=== PATIENT | male | born 1990 | race Caucasian/White ===

== ENCOUNTER 2017-08-31 08:32 | Inpatient (IN) | payer SELFPAY ==
[~2017-08-31] VITALS: Ht 177.8 cm; Wt 102.6 kg
[2017-08-31] VITALS (31 sets, daily range): BP systolic 55–132; BP diastolic 34–75; PULSE 100–128; TEMP 36.8–37.4; O2SAT 92–100; Ht 177.8 cm; Wt 102.6 kg
[~2017-08-31 08:32] MED LIST: SODIUM CHLORIDE 0.9% 1000ML 1,000 ML IV ONE
[2017-08-31] MEDS ORDERED: LORAZEPAM 2 MG/ML 1 ML VIAL ONE ×3 (08:35→12:18)
[2017-08-31] MEDS ORDERED: RAPID SEQUENCE INDUCTION BAG ONE (08:35)
[2017-08-31 08:54] LABS: VEN BLOOD GAS BASE EXCESS -11.4 mEq/L; VENOUS BLOOD GAS PCO2 75 mmHg (38.0-50.0); VENOUS BLOOD GAS PO2 28 mmHg
--- NOTE | 2017-08-31 08:54 | EMERGENCY ROOM VISIT NOTE ---
History Report prepared by Sneha: Ambar Cortés Under the Supervision of: Dr. Boris Covington M.D. First contact with patient: 08:26 Stated Complaint: UNRESPONSIVE/OVERDOSE History of Present Illness The patient is a 26 year old male who presents to the Emergency Room with a sudden overdose that occurred prior to arrival. Per EMS, the patient was found slumped over in bed by his roommates with his head between his knees. EMS reports that the patient is a known heroin addict, and additionally notes that he was just released from retirement. EMS reports drug paraphernalia was found in the patient's residence. EMS reports that the patient was given 2 doses of intranasal Narcan by police. EMS reports that the patient did not react to the intranasal Narcan and was given 1 dose of IV Narcan. EMS reports that the patient's extremities became more active after the IV Narcan. The history is limited secondary to the patient's altered mental status. Source of History: EMS History Limited By: AMS Onset: prior to arrival Position: other (global) Quality: other (overdose) Timing: other (sudden) Review of Systems The history is limited secondary to the patient's altered mental status. Past Medical & Surgical Medical Problems: (1) Acute respiratory failure (2) EDGAR (acute kidney injury) (3) Compartment syndrome (4) Heroin abuse (5) Overdose (6) Rhabdomyolysis Family History Family history is unobtainable secondary to the patient's altered mental status. Social History Drug Use: heroin Housing Status: lives with roommate Current/Historical Medications Unable to Obtain Active Prescriptions or Reported Meds Allergies Coded Allergies: No Known Allergies (Unverified , 08/31/17) Physical Exam Vital Signs Date Time Temp Pulse Resp B/P (MAP) Pulse Ox O2 Delivery O2 Flow Rate FiO2 08/31/17 09:10 137 18 153/79 96 Mechanical Ventilator 08/31/17 08:57 138 121/80 08/31/17 08:46 138 51/39 08/31/17 08:44 100 08/31/17 08:39 128 08/31/17 08:35 37.4 126 16 55/34 Ambu-Bag Physical Exam GENERAL: Rigid tone. Obtunded. HENT: Normocephalic, atraumatic. Oropharynx dry, crack MM EYES: Normal conjunctiva. Sclera non-icteric. NECK: Supple. No nuchal rigidity. FROM. No JVD. RESPIRATORY: Rhonchus breath sounds throughout. CARDIAC: ST. Extremities cool and clammy. Pulses thready but equal. Cap refill 2s x 4 Ext. ABDOMEN: Soft, non-distended. No tenderness to palpation. No rebound or guarding. No masses. RECTAL: Deferred. MUSCULOSKELETAL: Chest examination is symmetric with increased wob and accessory muscle use. No joint edema. LOWER EXTREMITIES: Calves are equal size, and rigid with b/l feet in plantar flexion. +DP pulses NEURO: GCS 7 including flex/ex posturing, rigid extremities, pupils are unequal , 4 on right 3 on left. SKIN: Erythematous blanchable patches that are symmetric on anterior thighs and posterior lower legs, consistent with dependent positions as per report found in seated position hunched over with forearms on his thighs/knees. Symmetric patches bilateral lateral chest and lateral abdomen. Skin is cool, clammy. Medical Decision & Procedures ER Provider Diagnostic Interpretation: Radiology results as stated below per my review and radiologist interpretation: CHEST ONE VIEW PORTABLE HISTORY: Evaluate Fever/Sepsis COMPARISON: None. FINDINGS: Endotracheal tube terminates 4.7 cm from the rachell. No pleural effusions. No pneumothorax. The heart is normal in size. Incidental note is made of a right azygos lobe. The lungs are clear. IMPRESSION: The endotracheal tube terminates 4.7 cm from the rachell. Electronically signed by: London Steven M.D. 08/31/2017 9:13 AM Dictated Date/Time: 08/31/2017 9:[address] CT DOSE: 776.86 mGycm HISTORY: obtundation TECHNIQUE: Multiaxial CT images of the head were performed without the use of intravenous contrast. Automated exposure control was utilized for this study. A dose lowering technique was utilized adhering to the principles of ALARA. Comparison: None. Findings: Small fluid level within the right maxillary sinus and mild mucosal thickening within the ethmoid air cells. Bubbly secretions within the right sphenoid sinus. The mastoid air cells are clear. The calvarium and skull base are intact. The ventricles and sulci are within normal limits. There is no mass, hematoma, midline shift, or acute infarct. Impression: No acute intracranial abnormality. Electronically signed by: London Steven M.D. 08/31/2017 9:42 AM Dictated Date/Time: 08/31/2017 9:29 AM Laboratory Results Test 08/31/17 08:37 08/31/17 08:41 08/31/17 08:55 Prothrombin Time 11.8 SECONDS (9.0-12.0) Prothromb Time International Ratio 1.1 (0.9-1.1) Activated Partial Thromboplast Time 27.1 SECONDS (21.0-31.0) Partial Thromboplastin Ratio 1.0 Direct Bilirubin 0.6 mg/dl (0-0.2) Total Creatine Kinase 15793 U/L (39-308) Salicylates Level 1.7 mg/dl (2.8-20) Acetaminophen Level < 2 ug/ml (10-30) Ethyl Alcohol mg/dL < 3.0 mg/dl (0-3) Venous Blood pH 7.06 (7.36-7.41) Venous Blood Partial Pressure CO2 75 mmHg (38.0-50.0) Venous Blood Partial Pressure O2 28 mmHg Venous Blood HCO3 21 mmol/L Venous Blood Oxygen Saturation < 60.0 % Venous Blood Base Excess -11.4 mEq/L Bedside Chloride 98 mEq/L (101-112) Bedside Total CO2 21 mEq/l (24-31) Bedside Blood Urea Nitrogen 37 mg/dl (7-18) Bedside Creatinine 4.3 mg/dl (0.6-1.3) Bedside Glucose (other) 75 mg/dl (70-99) Bedside Ionized Calcium (Charles) 0.87 mmol/l (1.12-1.32) Laboratory results reviewed by me Medications Administered Medications (Trade) Dose Ordered Sig/Ignacio Route Start Time Stop Time Status Last Admin Dose Admin Sodium Chloride 1,000 ml @ 2,000 mls/hr Q30M ONCE IV 08/31/17 08:26 08/31/17 08:55 DC 08/31/17 08:26 2,000 MLS/HR Miscellaneous (Rapid Sequence Induction Bag) 1 ea STK-MED ONCE N/A 08/31/17 08:35 08/31/17 08:36 DC 08/31/17 08:44 1 EA Lorazepam (Ativan Inj) 2 mg STK-MED ONCE .ROUTE 08/31/17 08:35 08/31/17 08:36 DC 08/31/17 08:37 2 MG Calcium Gluconate (Calcium Gluconate 10%) 2,000 mg STK-MED ONCE IV 08/31/17 08:59 08/31/17 09:00 DC 08/31/17 09:00 2,000 MG Procedure Endotracheal Intubation Indication obtundation and airway protection. The patient was on 100% oxygen via NRB prior to the procedure. Suction, airway equipment, RSI drugs, respiratory equipment, and appropriate personnel were prepared prior to the initiation of the procedure. A time out was taken. Induction was performed with Etomidate. Pre intubation paralysis was administered using Rocuronium. Post intubation sedation was deferred, but Versed was ordered on standby. After observing the clinical benefit of the medications, the airway was easily visualized utilizing a MAC 3. An 8.0 size ETT tube was placed atraumatically to 24 cm using standard technique. The cuff inflated without signs of malfunction. There were bilateral breath sounds, positive colormetric change, no gastric sounds, a good capnography waveform, and post procedure pulse oximetry was 100%. There were no complications. ECG Indication: toxicologic Rate (beats per minute): 130 Rhythm: sinus tachycardia Findings: RBBB, left axis deviation, other (prolonged QRS 232) ED Course 0826: Ordered Sodium Chloride 1000 ml @ 2000 mls/hr IV. 0831: The patient was evaluated in room B1. A complete history and physical exam was performed. 0835: Ordered Ativan Inj 2 mg .route. 0844: I intubated the patient at this time using 20 mg of Etomidate and 100 mg of Rocuronium. See procedure note for further detail. 0859: Ordered Calcium Gluconate 2000 mg IV. 0909: I discussed the patients case with Dr. Farmer [facility]. He is going to evaluate the patient for further treatment. 0919: I discussed the patients case with Dr. Palacio, Sae Armas PA-C, and Obdulio Chu, Intensive Care. They will evaluate the patient for further treatment in the ICU. 0924: Ordered Vancomycin HCl 1800 mg/Sodium Chlroide 536 ml @ 200 ms/hr IV, Zosyn 4.5 gm IV. 0929: I reevaluated the patient and he is hemodynamically stable. 0947: Ordered Zemuron Inj 100 mg IV, Lactated Ringer's 1000 ml @ 999 mls/hr IV, Sodium Bicarbonate 50 ml IV. Medical Decision The patient's presentation and history were concerning for Polypharm overdose, sepsis, intracranial hemorrhage, meningitis. I reviewed the patient's past medical history, medications, and the nursing notes as described above. The patient is a 26-year-old gentleman with a past medical history of polysubstance abuse presents emergency Department after being found unresponsive by his roommate unresponsive to intranasal Narcan and routes, equivocal response to IV Narcan prior to arrival. On arrival patient has a GCS of 7 and with rigid tone, given Ativan in case of serotonergic picture but did not respond. Patient was intubated for airway protection with Etomidate and Roccuronium. Intubation performed Grade 1 view with facile direct visualization. ETT confirmed on CXR. OGT placed. Coco-intubation hypotension SBP 50-60s, fluid responsive with IVF. Bedside echo with collapse IVC, Grossly normal LV and RV function. No pericardial effusion. No pressors required. POC chemistry with hyperkalemia and while EKG with artifact from agonal breathing on arrival, has widened QRS. Given 2gm calcium gluconate. Lactate 12. Ordered from [facility] empirically for sepsis. Case d/w [facility] hospitalist and ICU rv service technician and PA who will admit the patient for further management. Serum K confirmed on serum labs in the setting of ARF. Admitting team aware and managing. CPK pending. CT head negative. Head Trauma GCS Score: 7 Medication Reconcilliation Current Medication List: was personally reviewed by me Blood Pressure Screening Patient's blood pressure: Elevated blood pressure Blood pressure disposition: Elevated BP felt to be situational, Did not require urgent referral Consults Time Called: 904 Consulting Physician: EDDA Scott Returned Call: 908 I discussed the patients case with EDDA Scott. He is going to evaluate the patient for further treatment. Additional Consults: Time Called: 904 Consulted Physician: Sae Baker PA-C, Obdulio Chu PA-C Returned Call: 918 Additional Comments: I discussed the patients case with Sae Baker PA-C, and Obdulio Chu, Intensive Care. They will evaluate the patient for further treatment in the ICU. Impression Primary Impression: Polysubstance overdose Additional Impression: Sepsis Critical Care I have personally spent greater than 100 minutes of critical care time in the direct management of this patient. This includes bedside care, interpretation of diagnostic studies, and testing, discussion with consultants, patient, and family members, and other required patient management activities. This 100 minutes is in excess of all separately billable procedures. Scribe Attestation The scribe's documentation has been prepared under my direction and personally reviewed by me in its entirety. I confirm that the note above accurately reflects all work, treatment, procedures, and medical decision making performed by me. Departure Information Dispostion Being Evaluated By Hospitalist Prescriptions Unable to Obtain Active Prescriptions or Reported Meds Referrals No Doctor, Assigned (PCP) Problem Qualifiers
[2017-08-31 08:55] LABS: VEN BLD GAS O2 SATURATION < 60.0 %
[2017-08-31 08:57] LABS: HEMATOCRIT 56.3 % (42-52); MEAN CELL VOLUME 93.1 fL (80-100); MEAN CORPUSCULAR HEMOGLOBIN 32.2 pg (25-34); MEAN CORPUSCULAR HGB CONC 34.6 g/dl (32-36); MEAN PLATELET VOLUME 11.1 fL (7.4-10.4); PLATELET COUNT 291 K/uL (130-400); RED BLOOD COUNT 6.05 M/uL (4.7-6.1); WHITE BLOOD COUNT 25.07 K/uL (4.8-10.8)
[2017-08-31] MEDS ORDERED: CALCIUM GLUCONATE 10% 10 ML VIAL IV ONE ×2 (08:59→10:17)
[2017-08-31 09:09] LABS: ISTAT CREATININE 4.3 mg/dl (0.6-1.3); ISTAT HEMOGLOBIN 19.4 g/dl (14.0-18.0); ISTAT IONIZED CALCIUM 0.87 mmol/l (1.12-1.32)
--- NOTE | 2017-08-31 09:14 | DIAGNOSTIC IMAGING REPORT ---
CHEST ONE VIEW PORTABLE HISTORY: Evaluate Fever/Sepsis COMPARISON: None. FINDINGS: Endotracheal tube terminates 4.7 cm from the rachell. No pleural effusions. No pneumothorax. The heart is normal in size. Incidental note is made of a right azygos lobe. The lungs are clear. IMPRESSION: The endotracheal tube terminates 4.7 cm from the rachell. Electronically signed by: London Steven M.D. 08/31/2017 9:13 AM Dictated Date/Time: 08/31/2017 9:08 AM
[2017-08-31] MEDS ORDERED: VANCOMYCIN INJ 1,800 MG in SODIUM CHLORIDE 0.9% 500ML 500 ML IV STA (09:24)
[2017-08-31] MEDS ORDERED: PIPERACILLIN/TAZOBACTAM 4.5 GM/100ML D5W IV STA (09:24)
[2017-08-31 09:25] LABS: ACETAMINOPHEN < 2 ug/ml (10-30)
[2017-08-31 09:33] LABS: BUN/CREATININE RATIO 7.5 (10-20); CALCIUM 7.9 mg/dl (8.5-10.1); CREATININE 3.3 mg/dl (0.60-1.40); POTASSIUM 7.7 mmol/L (3.5-5.1)
--- NOTE | 2017-08-31 09:44 | DIAGNOSTIC IMAGING REPORT ---
HEAD CT NONCONTRAST CT DOSE: 776.86 mGycm HISTORY: obtundation TECHNIQUE: Multiaxial CT images of the head were performed without the use of intravenous contrast. Automated exposure control was utilized for this study. A dose lowering technique was utilized adhering to the principles of ALARA. Comparison: None. Findings: Small fluid level within the right maxillary sinus and mild mucosal thickening within the ethmoid air cells. Bubbly secretions within the right sphenoid sinus. The mastoid air cells are clear. The calvarium and skull base are intact. The ventricles and sulci are within normal limits. There is no mass, hematoma, midline shift, or acute infarct. Impression: No acute intracranial abnormality. Electronically signed by: London Steven M.D. 08/31/2017 9:42 AM Dictated Date/Time: 08/31/2017 9:29 AM
[2017-08-31] MEDS ORDERED: LACTATED RINGER'S 1000ML 1,000 ML IV STA (09:47)
[2017-08-31] MEDS ORDERED: ROCURONIUM BROMIDE 10 MG/ML 10 ML VIAL IV STA (09:47)
[2017-08-31] MEDS ORDERED: SODIUM BICARB 8.4% INJ 50 MEQ/50 ML SYR IV ONE ×2 (09:48→11:14)
[2017-08-31 09:56] LABS: BASO % 0.1 %; BASO ABS # 0.02 K/uL (0-0.2); COMPLETE YES; EOS % 0.1 %; IG% 0.7 %; LYMPH % 6.7 %; LYMPH ABS # 1.67 K/uL (1.2-3.4); NEUT % 81.4 %
[2017-08-31 09:58] LABS: ISTAT ARTERIAL BLOOD GAS HCO3 20 meq/L (19-24); ISTAT ARTERIAL BLOOD GAS PCO2 75 mmHg (35-46); ISTAT ARTERIAL BLOOD GAS PO2 321 mmHg (80-95); ISTAT ARTERIAL BLOOD GAS pH 7.03 (7.35-7.45); ISTAT CARBON DIOXIDE 22 mEq/l (24-31); ISTAT HEMATOCRIT 51 % (42-52); ISTAT HEMOGLOBIN 17.3 g/dl (14.0-18.0); ISTAT SODIUM 130 mEq/L (135-144)
[2017-08-31] MEDS ORDERED: ETOMIDATE 2 MG/ML 20 ML VIAL IV ONE ×2 (10:00→16:14)
[2017-08-31] MEDS ORDERED: SODIUM BICARB 8.4% INJ 50 MEQ/50 ML SYR IV STA (10:01)
[2017-08-31] MEDS ORDERED: CALCIUM GLUCONATE 10% 10 ML VIAL IV STA (10:01)
[2017-08-31] MEDS ORDERED: NovoLIN-R INSULIN PER UNIT CHARGE IV STA (10:01)
[2017-08-31] MEDS ORDERED: DEXTROSE 50% 50 ML SYR IV ONE (10:15)
[2017-08-31] MEDS ORDERED: NovoLIN-R INSULIN PER UNIT CHARGE ONE (10:17)
[2017-08-31] MEDS ORDERED: DEXTROSE 50% 50 ML SYR ONE (10:17)
[2017-08-31 10:27] LABS: INR 1.1 (0.9-1.1); PROTHROMBIN TIME (PATIENT) 11.8 SECONDS (9.0-12.0)
--- NOTE | 2017-08-31 10:52 | History and Physical ---
History & Physical Date & Time of Service: Aug 31, 2017 at 10:10 Chief Complaint: Unresponsive/Overdose Primary Care Physician: No Doctor, Assigned History of Present Illness Source: EMS, police, other (ER attending) 26yo male with history of polysubstance abuse and recent incarceration at the care home in [place], [place] - apparently released in the last few weeks - who presented from his home in [place] via EMS due to being unresponsive. According to his 2 roommates who provided history to the police he arrived home sometime about 1am this morning. He went to his bedroom and he was not seen until this am when he was found unresponsive by his roommates. It is unknown how long he was unresponsive. Heroin, IV needles, and generic xanax tablets were found in his room. He was found on the floor in a slumped position with his arms on his legs. In the field he was given narcan intranasally and then additional narcan en route without any response. Upon arrival to [facility] he was noted to be hypertonic and posturing. He was intubated following RSI protocol. During my assessment he was paralyzed, intubated, and unresponsive with blood coming from his OG tube. Nurses placed a smyth during my assessment and the urine was gross hematuria. Potassium noted to be near 8 with wide complex tachycardia on the monitor. He received calcium gluconate 2 amps prior to my arrival. I ordered an additional amp of calcium gluconate, amp of bicarbonate, and insulin with D50. I subsequently ordered a bicarb drip STAT and protonix drip. ICU was notified of his admission. Past Medical/Surgical History polysubstance abuse including IV drugs Family History unknown Social History Smoking Status: Unknown if Ever Smoked Smokeless Tobacco Use: Unknown Alcohol Use: unknown Drug Use: heroin Marital Status: single Housing status: lives with friends Occupational Status: employed (by report) Home Medications Unable to Obtain Active Prescriptions or Reported Meds Review of Systems unable to obtain ROS due to intubated status Physical Exam Vital Signs Date Time Temp Pulse Resp B/P (MAP) Pulse Ox O2 Delivery O2 Flow Rate FiO2 08/31/17 09:57 135 106/33 92 Mechanical Ventilator 08/31/17 09:36 98/34 08/31/17 09:31 136 18 107/62 95 Mechanical Ventilator 08/31/17 09:10 137 18 153/79 96 Mechanical Ventilator 08/31/17 08:57 138 121/80 08/31/17 08:46 138 51/39 08/31/17 08:39 128 08/31/17 08:35 37.4 126 16 55/34 Ambu-Bag General Appearance: no apparent distress, + pertinent finding (intubated, paralyzed, sedated) Head: normocephalic, + evidence of trama (small hematoma on forehead) Eyes: + pertinent finding (pupils dilated, about 5mm, both reactive ) ENT: TMs normal, + pertinent finding (ETT in place; OG tube in place draining maroon-colored material) Neck: no adenopathy, no JVD Respiratory/Chest: lungs clear, no respiratory distress, no accessory muscle use Cardiovascular: no gallop, no murmur, + tachycardia, + abnormal peripheral pulses (<1+ b/l feet) Abdomen/GI: normal bowel sounds, non tender, soft, no organomegaly Genitourinary - Male: normal male genitalia, no genital lesions Extremities/Musculoskelatal: no pedal edema Neurologic/Psych: + pertinent finding (paralyzed, DTRs throughout 0, babinski' s - not present; pupils as above) Skin: + pertinent finding (symmetric b/l thigh erythema in shape of rectangles ; tract cutler on antecubital regions and right foot; irregular shaped patches of erythema on chest; erythema on back of legs as well ) Diagnostics Laboratory Results Results Past 24 Hours Test 08/31/17 08:37 08/31/17 08:41 08/31/17 08:55 08/31/17 09:45 Range/Units White Blood Count 25.07 4.8-10.8 K/uL Red Blood Count 6.05 4.7-6.1 M/uL Hemoglobin 19.5 14.0-18.0 g/dL Hematocrit 56.3 42-52 % Mean Corpuscular Volume 93.1 80-100 fL Mean Corpuscular Hemoglobin 32.2 25-34 pg Mean Corpuscular Hemoglobin Concent 34.6 32-36 g/dl Platelet Count 291 130-400 K/uL Mean Platelet Volume 11.1 7.4-10.4 fL Neutrophils (%) (Auto) 81.4 % Lymphocytes (%) (Auto) 6.7 % Monocytes (%) (Auto) 11.0 % Eosinophils (%) (Auto) 0.1 % Basophils (%) (Auto) 0.1 % Neutrophils # (Auto) 20.44 1.4-6.5 K/uL Lymphocytes # (Auto) 1.67 1.2-3.4 K/uL Monocytes # (Auto) 2.75 0.11-0.59 K/uL Eosinophils # (Auto) 0.02 0-0.5 K/uL Basophils # (Auto) 0.02 0-0.2 K/uL RDW Standard Deviation 42.8 36.4-46.3 fL RDW Coefficient of Variation 12.6 11.5-14.5 % Immature Granulocyte % (Auto) 0.7 % Immature Granulocyte # (Auto) 0.17 0.00-0.02 K/uL Sodium Level 136 136-145 mmol/L Potassium Level 7.7 3.5-5.1 mmol/L Chloride Level 95 98-107 mmol/L Carbon Dioxide Level 17 21-32 mmol/L Anion Gap 24.0 24.0 16-25 mmol/L Blood Urea Nitrogen 25 7-18 mg/dl Creatinine 3.30 0.60-1.40 mg/dl Est Creatinine Clear Calc Drug Dose 38.0 ml/min Estimated GFR () 28.1 Estimated GFR (Non- 24.2 BUN/Creatinine Ratio 7.5 10-20 Random Glucose 80 70-99 mg/dl Calcium Level 7.9 8.5-10.1 mg/dl Total Bilirubin 1.1 0.2-1 mg/dl Direct Bilirubin 0.6 0-0.2 mg/dl Aspartate Amino Transf (AST/SGOT) 2289 15-37 U/L Alanine Aminotransferase (ALT/SGPT) 957 12-78 U/L Alkaline Phosphatase 104 45-117 U/L Troponin I 1.220 0-0.045 ng/ml Total Protein 8.1 6.4-8.2 gm/dl Albumin 4.1 3.4-5.0 gm/dl Salicylates Level 1.7 2.8-20 mg/dl Acetaminophen Level < 2 10-30 ug/ml Ethyl Alcohol mg/dL < 3.0 0-3 mg/dl Venous Blood pH 7.06 7.36-7.41 Venous Blood Partial Pressure CO2 75 38.0-50.0 mmHg Venous Blood Partial Pressure O2 28 mmHg Venous Blood HCO3 21 mmol/L Venous Blood Oxygen Saturation < 60.0 % Venous Blood Base Excess -11.4 mEq/L Lactic Acid Level 12.7 0.4-2.0 mmol/L Bedside Hemoglobin 19.4 17.3 14.0-18.0 g/dl Bedside Hematocrit 57 51 42-52 % Bedside Sodium 134 130 135-144 mEq/L Bedside Potassium 7.6 7.8 3.3-5.0 mEq/L Bedside Chloride 98 101-112 mEq/L Bedside Total CO2 21 24-31 mEq/l Bedside Blood Urea Nitrogen 37 7-18 mg/dl Bedside Creatinine 4.3 0.6-1.3 mg/dl Bedside Glucose (other) 75 70-99 mg/dl Bedside Ionized Calcium (Charels) 0.87 1.12-1.32 mmol/l Bedside Blood Gas pH (LAB) 7.03 7.35-7.45 Bedside Blood Gas pCO2 (LAB) 75 35-46 mmHg Bedside Blood Gas pO2 (LAB) 321 80-95 mmHg Bedside Blood Gas HCO3 (LAB) 20 19-24 meq/L Bedside Blood Gas Total CO2 22 24-31 mEq/l Bedside Blood Gas Base Excess (LAB) -11.0 -9-1.8 meq/L Bedside Blood Gas O2 Saturation 100.0 90-95 % Test 08/31/17 09:47 Range/Units Microbiology Results 08/31/17 Blood Culture, Received Pending 08/31/17 Blood Culture, Received Pending Diagnostic Radiology cxr - ETT in proper position; no infiltrates CT head - no ICH or stroke EKG EKG - my reading - wide complex tachycardia presumably from his severe hyperkalemia Impression Assessment and Plan 26yo male with recent incarceration - presumably for IV drug abuse - and past medical history significant for polysubstance abuse presenting critically ill from his home with evidence of severe acidosis - respiratory and metabolic, acute renal failure with resulting hyperkalemia and wide-complex tachycardia, evidence of rhabdomyolysis, +troponin, possible shock liver, and question of anoxic brain injury given the posturing and rigidity noted upon arrival to [facility]. 1. acute renal failure - rhabdomyolysis vs ATN vs substance induced/toxin vs other as cause. Smyth placed. Send u/a. Serial BMPs. Bicarb push given in ER; will follow with bicarbonate infusion. Good chance he may need hemodialysis if he does not recover. Nephrology consult indicated. 2. hyperkalemia - bicarb, calcium, D50 with insulin given. If GI tract is stable then kayexalate as well but unsure if bai to give given the blood in his OG tube. Bicarb infusion. 3. acute hypoxic/hypercarbic resp failure - 2nd to drug overdose - defer management to ICU staff. 4. shock liver - suspected, as he was hypotensive at presentation. Supportive care, check coags now, serial labs. 5. rhabdomyolysis - copious hydration, serial labs. 2nd to fall vs substance/ toxin vs other. 6. +troponin - could be due to #5 of simply from myocardial demand ischemia in setting of severe hyperkalemia. Serial troponins. Consider echo to assess LV function. 7. upper GI bleeding - protonix drip, serial H/H's. 8. blood per smyth - send u/a. Coags pending. Unclear etiology. Platelets were also normal. 9. ?anoxic brain injury - once paralytics have worn off then serial neurological exams. Avoid sedatives. Send tox screen. 10. DVT proph - SCDs. 11. FEN - serial labs, bicarb infusion as above, other fluids per ICU staff. critical care time 70 minutes Resuscitation Status FULL RESUSCITATION VTE Prophylaxis VTE Risk Assessment Done? Y/N: Yes Risk Level: Moderate Given or contraindicated: SCD's, Contraindicated Note Total Time: Critical Care 30 - 74 minutes
[2017-08-31] MEDS ORDERED: SODIUM BICARBONATE 8.4% INJ 150 MEQ in DEXTROSE 5% 1000ML 1,000 ML IV SCH (11:00)
[2017-08-31] MEDS ORDERED: PANTOprazole INJ 80 MG in DEXTROSE 5% 100ML IV ONE (11:15)
[2017-08-31] MEDS ORDERED: PATIENT'S ALLERGY INFO NEEDS ENTERED SCH (11:15)
[2017-08-31] MEDS ORDERED: PANTOprazole INJ 40 MG in DEXTROSE 5% 100ML IV SCH (11:30)
[2017-08-31 11:39] LABS: ISTAT ARTERIAL BLOOD GAS HCO3 27 meq/L (19-24); ISTAT ARTERIAL BLOOD GAS PCO2 47 mmHg (35-46); ISTAT ARTERIAL BLOOD GAS PO2 84 mmHg (80-95); ISTAT ARTERIAL BLOOD GAS pH 7.38 (7.35-7.45); ISTAT CARBON DIOXIDE 29 mEq/l (24-31); ISTAT HEMATOCRIT 50 % (42-52); ISTAT SODIUM 137 mEq/L (135-144)
--- NOTE | 2017-08-31 11:39 | Surgery Consultation ---
Consultation Date of Service Aug 31, 2017. (Alexandrea Monreal PA-C) Chief Complaint BLE compartment syndrome (Alexandrea Monreal PA-C) History of Present Illness The patient is a 26 year old male with hx of substance abuse, found unresponsive at home by roommates, and brought to [facility] by EMS after presumed overdose. Pt currently intubated and unable to provide hx. Labs demonstrate hyperkalemia, elevated CPK, elevated troponin. Pt unresponsive for unknown period of time. Upon eval by ICU staff, unable to palpate BLE DP pulses and concern raised for compartment syndrome. (Alexandrea Monreal PA-C) Vitals Vital Signs Past 12 Hours Date Time Temp Pulse Resp B/P (MAP) Pulse Ox O2 Delivery O2 Flow Rate FiO2 08/31/17 10:25 92/42 08/31/17 10:11 135 88/57 08/31/17 09:57 135 106/33 92 Mechanical Ventilator 08/31/17 09:36 98/34 08/31/17 09:31 136 18 107/62 95 Mechanical Ventilator 08/31/17 09:10 137 18 153/79 96 Mechanical Ventilator 08/31/17 08:57 138 121/80 08/31/17 08:46 138 51/39 08/31/17 08:39 128 08/31/17 08:35 37.4 126 16 55/34 Ambu-Bag (Alexandrea Monreal, JADA) Allergies Coded Allergies: No Known Allergies (Unverified , 08/31/17) Home Medications Unable to Obtain Active Prescriptions or Reported Meds Problem List Medical Problems: (1) Acute respiratory failure (2) Heroin abuse (3) Overdose (Alexandrea Monreal PA-C) Family History unable to obtain (Alexandrea Monreal PA-C) Social History Smoking Status: Unknown if Ever Smoked Hx Substance Use -Type & Amnt: Yes (heroin/xanax found at scene) (Alexandrea Monreal, JADA) Review of Systems Additional Comments: unable to obtain (Alexandrea Monreal PA-C) Physical Exam Constitutional: General Apperance: heathly-appearing, well-nourished, well-developed Level of Distress: acutely ill Neck: supple, trachea midline Lungs: Respiratory effort: pertinent finding (intubated) Cardiovascular: Apical Impulse: not displaced Heart Auscultation: tachycardia Peripheral Pulses: Pulses: full and equal, in all extremities except if noted Bruits: none appreciated Superficial Temporal Artery: normal on the left, normal on the right Carotid Pulse: normal on the left, normal on the right Brachial Pulses: normal on the left, normal on the right Radial Pulse: normal on the left, normal on the right Femoral Pulse: normal on the left, normal on the right Dorsalis Pedis Pulse: pertinent finding (unable to palpate, ) Abdomen: Bowel Sounds: normal Inspection & Palpation: soft, non-distended Extremities: Upper Right: no cyanosis, no edema, no varicosities Upper Left: no cyanosis, no edema, no varicosities Lower Right: edema, pertinent finding (BLE with edema, tight compartments, red markings posterior consistent with pressure) Lower Left: edema Additional Comments: pt intubated, unable to follow commands (Alexandrea Monreal, PA-C) Assessment and Plan ASSESSMENT and PLAN: compartment syndrome BLE Pt also seen by Dr Jose, recommends fasciotomies BLE, however, d/t hyperkalemia, recommend pt to undergo emergent HD prior to procedure today. Will discuss with family. (Alexandrea Mnoreal, PA-C) Patient was seen, examined, and chart reviewed. Agree with exam and treatment plan of the Vascular PA. Patient will need bilateral 4 compartment fasciotomies of his lower legs once is K is lowered. I have discussed the risks options and benefits of the procedure with the patient;s family. The patient's family understand the risks options and benefits and agree to the procedure. (Brian Jose M.D.)
[2017-08-31 11:41] LABS: BENZODIAZEPINE, URINE NEG (NEG); COCAINE,URINE NEG (NEG); PHENCYCLIDINE, URINE NEG (NEG)
--- NOTE | 2017-08-31 11:49 | Nephrology Consultation ---
Nephrology Consultation Date & Providers Date of Consultation: Aug 31, 2017. Primary Care Provider: No Doctor, Assigned Referring Provider: Reason for Consultation Emergency HD for rhabdomyolysis, EDGAR and hyperkalemia History of Present Illness Mr. Ponce is a 26 year old white male who is seen at the request of Dr. Jose to provide emergency HD. Patient was seen & examined in the ICU. He is currently sedated and receiving mechanical ventilation. His medical care was discussed w/ the ICU team and Vascular Surgery. Review of the medical record shows that Mr. Ponce has a history of polysubstance abuse. He was recently incarcerated but released a few weeks ago. Mr. Ponce was found by his two roomates to be unresponsive at 1 am today. EMS was called. Heroin, IV needles, and generic xanax tablets were found in his room. He was found on the floor in a slumped position with his arms on his legs. In the field he was given narcan intranasally and then additional narcan en route without any response. Upon arrival to [facility] he was noted to be hypertonic and posturing. He was intubated and admitted to the ICU. Evaluation revealed CPK > 40,000, EDGAR w/ creatinine 3.3 and severe hyperkalemia. He had wide complex tachycardia on telemetry. Patient was given IV calcium and bicarbonate. Vascular surgery has evaluated the patient and determined that he has compartment syndrome. Emergency HD has been requested to correct hyperkalemia prior to surgery. Past Medical/Surgical History Medical: Polysubstance abuse including IV drugs Allergies Coded Allergies: No Known Allergies (Unverified , 08/31/17) Inpatient Medications Current Inpatient Medications Medications (Trade) Dose Ordered Sig/Ignacio Route Start Time Stop Time Status Last Admin Dose Admin Vancomycin HCl 1800 mg/Sodium Chloride 536 ml @ 200 mls/hr ONE STAT IV 08/31/17 09:24 08/31/17 12:04 Sodium Bicarbonate 150 meq/Dextrose 1,150 ml @ 150 mls/hr [id number] IV 08/31/17 11:00 09/30/17 10:59 Pantoprazole Sodium 80 mg/ Dextrose 120 ml @ 480 mls/hr 1115 ONCE IV 08/31/17 11:15 08/31/17 11:29 Pantoprazole Sodium 40 mg/ Dextrose 100 ml @ 20 mls/hr Q5H IV 08/31/17 11:30 09/30/17 11:29 Miscellaneous Information (Patient'S Allergy Info Needs Entered) 1 ea Q10M N/A 08/31/17 11:15 09/30/17 11:14 Family History Unknown Social History Smoking Status: Unknown if Ever Smoked Smokeless Tobacco Use: Unknown Alcohol Use: unknown Drug Use: heroin Marital Status: single Housing Status: lives with friends Occupation: employed (by report) Unknown except recent incarceration Review of Systems Sedated. Mechanically ventilated. Unable to obtain ROS Physical Exam Date Time Temp Pulse Resp B/P (MAP) Pulse Ox O2 Delivery O2 Flow Rate FiO2 08/31/17 10:25 92/42 08/31/17 10:11 135 88/57 08/31/17 09:57 135 106/33 92 Mechanical Ventilator 08/31/17 09:36 98/34 08/31/17 09:31 136 18 107/62 95 Mechanical Ventilator 08/31/17 09:10 137 18 153/79 96 Mechanical Ventilator 08/31/17 08:57 138 121/80 08/31/17 08:46 138 51/39 08/31/17 08:39 128 08/31/17 08:35 37.4 126 16 55/34 Ambu-Bag General Appearance: + pertinent finding (sedated, mechanically ventilated) Head: normocephalic, atraumatic Eyes: PERRL, EOMI Neck: no adenopathy Respiratory/Chest: + pertinent finding (coarse breath sounds bilaterally) Cardiovascular: + tachycardia Abdomen/GI: + distended (hypoactive bowel sounds) Extremities/Musculoskelatal: + pertinent finding (tense swelling of the calves bilaterally) Neurologic/Psych: + pertinent finding (sedated) Laboratory Results Last 24 Hours Test 08/31/17 08:37 08/31/17 08:41 08/31/17 08:55 08/31/17 09:45 White Blood Count 25.07 K/uL Red Blood Count 6.05 M/uL Hemoglobin 19.5 g/dL Hematocrit 56.3 % Mean Corpuscular Volume 93.1 fL Mean Corpuscular Hemoglobin 32.2 pg Mean Corpuscular Hemoglobin Concent 34.6 g/dl Platelet Count 291 K/uL Mean Platelet Volume 11.1 fL Neutrophils (%) (Auto) 81.4 % Lymphocytes (%) (Auto) 6.7 % Monocytes (%) (Auto) 11.0 % Eosinophils (%) (Auto) 0.1 % Basophils (%) (Auto) 0.1 % Neutrophils # (Auto) 20.44 K/uL Lymphocytes # (Auto) 1.67 K/uL Monocytes # (Auto) 2.75 K/uL Eosinophils # (Auto) 0.02 K/uL Basophils # (Auto) 0.02 K/uL RDW Standard Deviation 42.8 fL RDW Coefficient of Variation 12.6 % Immature Granulocyte % (Auto) 0.7 % Immature Granulocyte # (Auto) 0.17 K/uL Prothrombin Time 11.8 SECONDS Prothromb Time International Ratio 1.1 Activated Partial Thromboplast Time 27.1 SECONDS Partial Thromboplastin Ratio 1.0 Sodium Level 136 mmol/L Potassium Level 7.7 mmol/L Chloride Level 95 mmol/L Carbon Dioxide Level 17 mmol/L Anion Gap 24.0 mmol/L 24.0 mmol/L Blood Urea Nitrogen 25 mg/dl Creatinine 3.30 mg/dl Est Creatinine Clear Calc Drug Dose 38.0 ml/min Estimated GFR () 28.1 Estimated GFR (Non- 24.2 BUN/Creatinine Ratio 7.5 Random Glucose 80 mg/dl Calcium Level 7.9 mg/dl Total Bilirubin 1.1 mg/dl Direct Bilirubin 0.6 mg/dl Aspartate Amino Transf (AST/SGOT) 2289 U/L Alanine Aminotransferase (ALT/SGPT) 957 U/L Alkaline Phosphatase 104 U/L Total Creatine Kinase 90419 U/L Troponin I 1.220 ng/ml Total Protein 8.1 gm/dl Albumin 4.1 gm/dl Salicylates Level 1.7 mg/dl Acetaminophen Level < 2 ug/ml Ethyl Alcohol mg/dL < 3.0 mg/dl Venous Blood pH 7.06 Venous Blood Partial Pressure CO2 75 mmHg Venous Blood Partial Pressure O2 28 mmHg Venous Blood HCO3 21 mmol/L Venous Blood Oxygen Saturation < 60.0 % Venous Blood Base Excess -11.4 mEq/L Lactic Acid Level 12.7 mmol/L Bedside Hemoglobin 19.4 g/dl 17.3 g/dl Bedside Hematocrit 57 % 51 % Bedside Sodium 134 mEq/L 130 mEq/L Bedside Potassium 7.6 mEq/L 7.8 mEq/L Bedside Chloride 98 mEq/L Bedside Total CO2 21 mEq/l Bedside Blood Urea Nitrogen 37 mg/dl Bedside Creatinine 4.3 mg/dl Bedside Glucose (other) 75 mg/dl Bedside Ionized Calcium (Charles) 0.87 mmol/l Bedside Blood Gas pH (LAB) 7.03 Bedside Blood Gas pCO2 (LAB) 75 mmHg Bedside Blood Gas pO2 (LAB) 321 mmHg Bedside Blood Gas HCO3 (LAB) 20 meq/L Bedside Blood Gas Total CO2 22 mEq/l Bedside Blood Gas Base Excess (LAB) -11.0 meq/L Bedside Blood Gas O2 Saturation 100.0 % Test 08/31/17 10:05 08/31/17 11:14 Impression (1) EDGAR (acute kidney injury) (2) Rhabdomyolysis (3) Compartment syndrome (4) Polysubstance overdose (5) Heroin abuse (6) Acute respiratory failure Mr. Ponce was admitted to the ICU following a drug overdose. Evaluation has revealed compartment syndrome, rhabdomyolysis, EDGAR, hyperkalemia and wide complex tachycardia. HD has been requested to provide emergency hemodialysis to correct electrolyte balance prior to surgery Recommendations Case discussed w/ ICU team and family. Mr. Ponce's parents are aware of diagnosis and need for HD and surgery. The indications/risks/benefits and alternatives to hemodialysis were discussed in detail. Mr. Ponce's parents have provided consent to proceed w/ hemodialysis and surgical care. ICU team has placed temporary femoral dialysis catheter. Orders for hemodialysis have been placed in the EMR and HD RN notified. Will order a post dialysis potassium level at 4 pm. Vascular surgery plans OR following dialysis today and correction of hyperkalemia. One hour critical care time provided to the patient today. This was necessary to review his record, coordinate care w/ ICU team and coordinate emergency HD. Over 50% of time provided was spent on coordination of care.
[2017-08-31] MEDS ORDERED: NURSING VERBAL MED ORDER STA (12:07)
[2017-08-31] MEDS ORDERED: FENTANYL CITRATE INJ 50 MCG/1 ML 2 ML VIAL ONE ×2 (12:17→15:55)
[2017-08-31] MEDS: NOREPINEPHRINE BIT INJ 8 MG in DEXTROSE 5% 500ML 500 ML IV PRN ×3 (12:42→21:51)
[2017-08-31] MEDS ORDERED: NURSING VERBAL MED ORDER ONE ×5 (12:45→19:45)
--- NOTE | 2017-08-31 14:32 | Procedure Note ---
Procedure Note Procedure Date Aug 31, 2017. (Obdulio Chu PA-C) 08/31/2017 (Linas. 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 Palacio APC: Obdulio Chu PA-C Indication: Monitoring on Pressors Anesthesia: None/Lidocaine 1% A time-out was completed verifying correct patient, procedure, site, positioning , and implant(s) or special equipment if applicable. Patients LEFT Groin was prepped and draped in the usual sterile fashion. Ultrasound guidance was used to aid needle placement. A 20g, 12 cm Arrow arterial line was introduced into the LEFT femoral artery utilizing Seldinger technique. The wire was removed with appropriate blood return. Good waveform was observed. The patient tolerated the procedure well. Blood Loss: Minimal Complications: None Procedural Ultrasound Guidance: Procedure Date: 08/31/2017 Indication: Monitoring Blood Pressures/Blood Gases Attending: Dr. Palacio APC: Obdulio Chu PA-C Artery Identified: YES Complications: NONE Patient tolerated procedure: WELL Complications: none Patient tolerated procedure: well Post-procedure vital signs: reviewed and stable (Obdulio Chu PA-C) Procedure Name: Femoral arterial line. Comments: I was present for the entire time of procedure, no complications, good blood presesuretracing. (Linas. Palacio MD)
[2017-08-31] MEDS: SODIUM CHLORIDE 0.9% 1000ML 1,000 ML IV SCH ×3 (14:55→19:42)
[2017-08-31 14:59] LABS: MANUAL MICROSCOPIC REQUIRED? YES; REVIEW REQ? NO
[2017-08-31 15:00] LABS: SULFASALICYLIC ACID POS (NEG); URINE APPEARANCE CLOUDY (CLEAR); URINE COLOR BROWN
[2017-08-31 15:03] LABS: URINE SPECIFIC GRAVITY 1.019 (1.000-1.030)
[2017-08-31 15:06] LABS: URINE AMORPHOUS SEDIMENT PRESENT (NONE PRSENT); URINE RBC 0-4 /hpf (0-4)
[2017-08-31 15:07] LABS: URINE GRANULAR CAST 0-3 /lpf (0)
[2017-08-31] MEDS ORDERED: KETAMINE HCL INJ 50 MG/ML 10 ML VIAL IV STA (15:07)
[2017-08-31 15:08] LABS: URINE BACTERIA NEG (NEG)
--- NOTE | 2017-08-31 15:23 | Critical Care Consultation ---
Critical Care Consultation Date of Consultation: Aug 31, 2017. Attending Physician: Carlito Farmer MD Reason for Consultation: unresponsive, respiratory failure, intubated History of Present Illness This is a 26 y/o male with hx of polysubstance abuse and recent incarceration at the correction in [place], [place] presented to the ED via EMS due to being unresponsive. History is obtained from ED note and H&P from the hospitalist given patient is intubated and couldn't provide any information. Patient was found unresponsive at his home by 2 of his roommate, not known how long he was unresponsive. Heroin, IV needles and xanax were found in his room. He was given Narcan intranasally on the scene and given additional narcan en route to the hospital without any response. Patient was intubated upon arrival to the hospital. Potassium was elevated to 8 , given calcium gluconate, bicarb and insulin +D50. During my exam patient was intubated, couldn't obtain full ROS. Patient complains of pain on b/l LE. Social History Smoking Status: Unknown if Ever Smoked Smokeless Tobacco Use: Unknown Alcohol Use: unknown Drug Use: heroin Marital Status: single Housing Status: lives with roommate Occupation Status: employed (by report) Allergies Coded Allergies: No Known Allergies (Unverified , 08/31/17) Home Medications Unable to Obtain Active Prescriptions or Reported Meds Current Inpatient Medications Current Inpatient Medications Medications (Trade) Dose Ordered Sig/Ignacio Route Start Time Stop Time Status Last Admin Dose Admin Sodium Bicarbonate 150 meq/Dextrose 1,150 ml @ 150 mls/hr [id number] IV 08/31/17 11:00 09/30/17 10:59 08/31/17 12:28 150 MLS/HR Heparin Sodium (Porcine) (No Heparin In Dialysis) 1 ea 1145 N/A 08/31/17 11:45 08/31/17 23:00 Norepinephrine Bitartrate 8 mg/ Dextrose 508 ml @ 0 mls/hr Q0M PRN IV 08/31/17 12:30 09/30/17 12:29 08/31/17 12:42 9 MLS/HR Pantoprazole Sodium 40 mg/ Syringe 10 ml @ 5 mls/min DAILY@1100 IV 09/01/17 11:00 10/01/17 10:59 Review of Systems Patient was intubated, couldn't obtain ROS Physical Exam Date Time Temp Pulse Resp B/P (MAP) Pulse Ox O2 Delivery O2 Flow Rate FiO2 08/31/17 11:46 50 08/31/17 10:25 92/42 08/31/17 10:11 135 88/57 08/31/17 09:57 135 106/33 92 Mechanical Ventilator 08/31/17 09:36 98/34 08/31/17 09:31 136 18 107/62 95 Mechanical Ventilator 08/31/17 09:10 137 18 153/79 96 Mechanical Ventilator 08/31/17 08:57 138 121/80 08/31/17 08:46 138 51/39 08/31/17 08:44 100 08/31/17 08:39 128 08/31/17 08:35 37.4 126 16 55/34 Ambu-Bag General Appearance: no apparent distress, other (intubated, would open eyes upon calling his name) Eyes: PERRLA, EOMI ENT: normal ear exam Neck: trachea midline, supple, no nuchal rigidity Respiratory: clear to auscultation, no respiratory distress, no tenderness Cardiovasular: normal S1S2, no murmur, abnormal pulses (could not appreciate b/ l LE DP), other (tachycardiac ) Abdomen: non tender, normal bowel sounds, no masses, no guarding Lower Extremities: edema, other (marking was noted on the left leg, tightness was noted on both LE ant and post, dorsalis pedis pulse was not able to palpate on b/l LE ) Neuro: alert Laboratory Results Last 24 Hours Test 08/31/17 08:37 08/31/17 08:41 08/31/17 08:55 08/31/17 09:45 White Blood Count 25.07 K/uL Red Blood Count 6.05 M/uL Hemoglobin 19.5 g/dL Hematocrit 56.3 % Mean Corpuscular Volume 93.1 fL Mean Corpuscular Hemoglobin 32.2 pg Mean Corpuscular Hemoglobin Concent 34.6 g/dl Platelet Count 291 K/uL Mean Platelet Volume 11.1 fL Neutrophils (%) (Auto) 81.4 % Lymphocytes (%) (Auto) 6.7 % Monocytes (%) (Auto) 11.0 % Eosinophils (%) (Auto) 0.1 % Basophils (%) (Auto) 0.1 % Neutrophils # (Auto) 20.44 K/uL Lymphocytes # (Auto) 1.67 K/uL Monocytes # (Auto) 2.75 K/uL Eosinophils # (Auto) 0.02 K/uL Basophils # (Auto) 0.02 K/uL RDW Standard Deviation 42.8 fL RDW Coefficient of Variation 12.6 % Immature Granulocyte % (Auto) 0.7 % Immature Granulocyte # (Auto) 0.17 K/uL Prothrombin Time 11.8 SECONDS Prothromb Time International Ratio 1.1 Activated Partial Thromboplast Time 27.1 SECONDS Partial Thromboplastin Ratio 1.0 Sodium Level 136 mmol/L Potassium Level 7.7 mmol/L Chloride Level 95 mmol/L Carbon Dioxide Level 17 mmol/L Anion Gap 24.0 mmol/L 24.0 mmol/L Blood Urea Nitrogen 25 mg/dl Creatinine 3.30 mg/dl Est Creatinine Clear Calc Drug Dose 38.0 ml/min Estimated GFR () 28.1 Estimated GFR (Non- 24.2 BUN/Creatinine Ratio 7.5 Random Glucose 80 mg/dl Calcium Level 7.9 mg/dl Total Bilirubin 1.1 mg/dl Direct Bilirubin 0.6 mg/dl Aspartate Amino Transf (AST/SGOT) 2289 U/L Alanine Aminotransferase (ALT/SGPT) 957 U/L Alkaline Phosphatase 104 U/L Total Creatine Kinase 58581 U/L Troponin I 1.220 ng/ml Total Protein 8.1 gm/dl Albumin 4.1 gm/dl Salicylates Level 1.7 mg/dl Acetaminophen Level < 2 ug/ml Ethyl Alcohol mg/dL < 3.0 mg/dl Venous Blood pH 7.06 Venous Blood Partial Pressure CO2 75 mmHg Venous Blood Partial Pressure O2 28 mmHg Venous Blood HCO3 21 mmol/L Venous Blood Oxygen Saturation < 60.0 % Venous Blood Base Excess -11.4 mEq/L Lactic Acid Level 12.7 mmol/L Bedside Hemoglobin 19.4 g/dl 17.3 g/dl Bedside Hematocrit 57 % 51 % Bedside Sodium 134 mEq/L 130 mEq/L Bedside Potassium 7.6 mEq/L 7.8 mEq/L Bedside Chloride 98 mEq/L Bedside Total CO2 21 mEq/l Bedside Blood Urea Nitrogen 37 mg/dl Bedside Creatinine 4.3 mg/dl Bedside Glucose (other) 75 mg/dl Bedside Ionized Calcium (Charles) 0.87 mmol/l Bedside Blood Gas pH (LAB) 7.03 Bedside Blood Gas pCO2 (LAB) 75 mmHg Bedside Blood Gas pO2 (LAB) 321 mmHg Bedside Blood Gas HCO3 (LAB) 20 meq/L Bedside Blood Gas Total CO2 22 mEq/l Bedside Blood Gas Base Excess (LAB) -11.0 meq/L Bedside Blood Gas O2 Saturation 100.0 % Test 08/31/17 10:05 08/31/17 11:14 08/31/17 11:24 08/31/17 12:00 Urine Opiates Screen POS Urine Methadone, Qualitative NEG Urine Barbiturates NEG Urine Phencyclidine (PCP) Level NEG Ur Amphetamine/Methamphetamine NEG MDMA (Ecstasy) Screen NEG Urine Benzodiazepines Screen NEG Urine Cocaine Metabolite NEG Urine Marijuana (THC) POS Bedside Hemoglobin 17.0 g/dl Bedside Hematocrit 50 % Bedside Blood Gas pH (LAB) 7.38 Bedside Blood Gas pCO2 (LAB) 47 mmHg Bedside Blood Gas pO2 (LAB) 84 mmHg Bedside Blood Gas HCO3 (LAB) 27 meq/L Bedside Blood Gas Total CO2 29 mEq/l Bedside Blood Gas Base Excess (LAB) 2.0 meq/L Bedside Blood Gas O2 Saturation 96.0 % Bedside Sodium 137 mEq/L Bedside Potassium 6.3 mEq/L Assessment & Plan Resident Physician Supervision Note: I was personally present with Dr.Najnin Aguayo during the history and exam. I discussed the case with the resident and agree with the findings and plan as documented in the note. In summary, the patient is a 26 year old man with history of anxiety and opiate abuse who was found unresponsive by his roommate slumped in the chair. Patient was brought to [facility] emergency room by EMS. There was no response to intranasal Narcan. Tox screen was positive for opiates and cannabinoids. There is history of possible Xanax abuse. Patient was intubated and placed on full mechanical ventilatory support due to his poor ability to protect the airway and hypocapnia. He was started on norepinephrine drip at 0.4 g/kg/min and transferred critically ill to medical intensive care unit for further management. On my physical examination, patient is intubated, good gas exchange on 40% of oxygen and PEEP of 5 cm. Systolic blood pressure into 70s on norepinephrine at 0.4 mcg. Neurologically, patient moves all extremities, was able to follow simple commands off sedation. Lungs were clear to auscultation, heart was beating regularly, sinus tachycardia, no murmurs. Abdomen was soft. Bowel sounds were present. Lower extremities compartments [id number] were tense. Peripheral pulses were dopplerable. Capillary refill was poor. There was tense anterior compartments [id number] bilaterally. There were needle tracks in the left forearm. Right forearm compartments were somewhat tense more than left. Skin without any rash or splint hemorrhage. CT scan of the head revealed no intracranial abnormality, preserved white cummings matter differentiation. CPK level 40,000, creatinine 1.7, potassium 8.0, hemoglobin 19. Assessment and plan: 1. Acute mental status change secondary to opiate/benzodiazepine abuse/ intoxication. Patient required intubation for airway protection. No response to Narcan. CT scan without any acute intracranial pathology. 2. Rhabdomyolysis, severe, acute kidney injury, hyperkalemia. Temporizing measures with calcium, bicarbonate, insulin, glucose followed by cath placement and hemodialysis treatment. Urgent surgical consultation was obtained, patient was taken to the operating room for bilateral fasciotomies. All 4 compartments were open below the knee with viable muscle. We'll follow CPK levels. Bilateral thigh and the right forearm compartments are still at risk. Peripheral pulses are dopplerable, movements of toes and fingers are preserved. 3. Acute respiratory failure, we'll continue with full mechanical ventilator support for airway protection. Chest x-ray is clear, minimal oxygen requirement. 4. Hypotension. Suspect severe intravascular volume depletion, vasodilation, possible infection in the setting of active IV drug abuse. We will continue with aggressive volume resuscitation, titrate norepinephrine to keep maps above 65 mmHg. 5. ID: Suspected infection in the setting of active IV drug abuse. Patient received vancomycin and Zosyn. Blood cultures are pending. 6. Acute liver injury from hypoperfusion. We will trend LFTs and coagulation panel. 7. Neurologically: Nonfocal exam, follows simple commands off sedation, preserved cummings white matter differentiation on the CT scan. 8. History of anxiety, not treated. 9. Opiate, benzodiazepine, marijuana abuse. 10. We'll start heparin subcutaneous for DVT prophylaxis. 11. Sedation with midazolam, ketamine, postoperative pain on fentanyl drip. 12. Patient was extensively discussed with his mother and father at the bedside. He is a full code. CCT 120 min exclusive procedures. Documented By: Virginia Palacio This is a 26 y/o male with hx of polysubstance abuse presented to the ED via ambulance for unresponsive and hypoxic, 2/2 possible of drug abuse. Patient is intubated and admitted to ICU for further management. Neuro - * CAM ICU: unable to perform, patient is intubated * Patient is alert and reposes to verbal stimuli * Received 4mg of Ativan and 100mcg of Fentanyl Cardiac - * EKG in ED showed wide complex tachycardia, most likely secondary to severe hyperkalemia * Hypotension * Received bolus of 5L NSS * Currently on Sodium bicarb 150meq/Dextrose @150mls/hr * NE bitartrate 8mg/Dextrose per protocol * Elevated troponin * most likely secondary to demand supply mismatch in the setting of severe hyperkalemia and hypotension Respiratory - * Acute hypoxic/hypercapnic respiratory failure * Most likely secondary to substance abuse * Urine tox positive for opiates and marijuana, rest are pending * pH 7.38, pCO2 47, HCO3 27, pO2 84 * Currently intubated and on Vent (FiO2 50%) * Continue to monitor GI - * Diet : NPO * Shock Liver * Elevated AST and ALT secondary to hypotension * Coag profile normal * IV Pantoprazole for GI prophylaxis * Continue to monitor RENAL/LYTES - * Acute kidney injury * Could be multifactorial, secondary to rhabdomyolysis and/or substance induced * Total CPK >40,000 * Received bolus of 5L NSS and continue Sodium bicarb 150meq/Dextrose @150mls/ hr * Monitor PRP * Nephrology is consulted and will continue to appreciate their recommendation * Hyperkalemia * Most likely secondary to rhabdomyolysis * On ED it was 8, on repeat decreased to 6.3 * Received bicarb, calcium gluconate and insulin + D50 in ED * Emergency HD to correct electrolytes prior to fasciotomy * Lactic acid is also elevated MSK - * Compartment syndrome of b/l LE * Physical exam of the b/l LE revealed compartment syndrome * Vascular surgery is consulted, plan for fasciotomy * Patient will have HD to correct electrolyte prior to surgery * Rhabdomyolysis * CPK>40,000, lactic acid also increased * Received bolus of 5L IVF * On HD to correct electrolytes abnormalities * Continue IVF * Continue to monitor - * [facility] - * No h/o endocrine disease HEME - * Hgb is elevated, 19.5 (patient presented with hypotension) * Continue to monitor * No h/o of heme problem ID - * No concerns for infection at this point. * Will monitor fever curve. * BCx pending * Nasal swab neg for MRSA DVT PROPHYLAXIS - * Will hold pharmacologic prophylaxis because of surgery * SCDs
[2017-08-31] MEDS ORDERED: KETAMINE HCL IV ONE (15:30)
[2017-08-31] MEDS ORDERED: KETAMINE HCL INJ 500 MG in SODIUM CHLORIDE 0.9% 500ML 490 ML IV PRN (15:30)
[2017-08-31 15:40] LABS: BENZODIAZEPINE, URINE NEG (NEG); COCAINE,URINE NEG (NEG); PHENCYCLIDINE, URINE NEG (NEG)
[2017-08-31] MEDS ORDERED: LIDOCAINE HCL 2% 2 ML VIAL (20MG/ML) ONE (15:55)
[2017-08-31] MEDS ORDERED: MIDAZOLAM HCL 1 MG/ML 2ML VIAL ONE ×2 (15:55→17:09)
[2017-08-31] MEDS ORDERED: PROPOFOL IV EMULSION 10 MG/ML 20 ML VIAL IV ONE (15:55)
[2017-08-31] MEDS ORDERED: INFLUENZA VIRUS QUAD VACCINE 0.5 ML SYR IM. ONE (16:00)
[2017-08-31] MEDS ORDERED: INFLUENZA ADMINISTRATION CHARGE ONE (16:00)
[2017-08-31] MEDS ORDERED: KETAMINE HCL INJ 50 MG/ML 10 ML VIAL ONE (16:05)
[2017-08-31] MEDS ORDERED: SODIUM CHLORIDE 0.9% 10ML FLUSH IV ONE (16:14)
[2017-08-31] MEDS ORDERED: ROCURONIUM BROMIDE 10 MG/ML 10 ML VIAL IV ONE (16:14)
[2017-08-31] MEDS ORDERED: NOREPINEPHRINE BITARTRATE 1 MG/ML 4 ML VIAL ONE (16:44)
[2017-08-31] MEDS ORDERED: PHENYLEPHRINE HCL INJ 10 MG/ML VIAL ONE (17:02)
--- NOTE | 2017-08-31 17:34 | [facility] Post Operative Brief Note ---
Immediate Operative Summary Operative Date Aug 31, 2017. Pre-Operative Diagnosis Bilateral Lower Extremity Compartment Syndrome Post-Operative Diagnosis same as preop Procedure(s) Performed Bilateral Lower Extremity Four Compartmental Fasciotomies Surgeon Dr. Brian Jose Supervisor Drilling And Shooting Surgeon(s) none Estimated Blood Loss 200ML Findings muscle pinked up nicely Specimens none, Per Surgeon Anesthesia Gen Complication(s) None Disposition Surgical ICU
[2017-08-31] MEDS ORDERED: ROCURONIUM BROMID 50MG/5ML SYR ONE (18:14)
[2017-08-31] MEDS ORDERED: SODIUM CHLORIDE 0.9% 500ML 500 ML IV SCH (18:30)
[2017-08-31] MEDS ORDERED: LORAZEPAM 2 MG/ML 1 ML VIAL IV PRN (18:30)
[2017-08-31 18:38] LABS: ISTAT ARTERIAL BLOOD GAS HCO3 21 meq/L (19-24); ISTAT ARTERIAL BLOOD GAS PCO2 48 mmHg (35-46); ISTAT ARTERIAL BLOOD GAS PO2 101 mmHg (80-95); ISTAT ARTERIAL BLOOD GAS pH 7.26 (7.35-7.45); ISTAT CARBON DIOXIDE 23 mEq/l (24-31); ISTAT SITE Art Line
[2017-08-31 18:39] LABS: HEMATOCRIT 49.7 % (42-52); MEAN CELL VOLUME 88.9 fL (80-100); MEAN CORPUSCULAR HEMOGLOBIN 30.8 pg (25-34); MEAN CORPUSCULAR HGB CONC 34.6 g/dl (32-36); MEAN PLATELET VOLUME 11.3 fL (7.4-10.4); PLATELET COUNT 197 K/uL (130-400); RED BLOOD COUNT 5.59 M/uL (4.7-6.1); WHITE BLOOD COUNT 19.75 K/uL (4.8-10.8)
[2017-08-31 19:03] LABS: BUN/CREATININE RATIO 11.1 (10-20); CALCIUM 5.3 mg/dl (8.5-10.1); CREATININE 1.7 mg/dl (0.60-1.40); PHOSPHORUS 6.6 mg/dl (2.5-4.9); POTASSIUM 6.2 mmol/L (3.5-5.1)
[2017-08-31 19:04] LABS: BASO % 0.1 %; BASO ABS # 0.02 K/uL (0-0.2); COMPLETE YES; IG% 0.4 %; LYMPH % 9.4 %; LYMPH ABS # 1.86 K/uL (1.2-3.4); MONO % 6.6 %; NEUT % 83.5 %
[2017-08-31 19:20] LABS: HEPATITIS B AB POS
[2017-08-31 19:38] LABS: BUN/CREATININE RATIO 11.2 (10-20); CREATININE 1.7 mg/dl (0.60-1.40); POTASSIUM 6.2 mmol/L (3.5-5.1)
[2017-08-31 19:39] LABS: CALCIUM 5.2 mg/dl (8.5-10.1)
--- NOTE | 2017-08-31 21:01 | Procedure Note ---
Procedure Note Procedure Date Aug 31, 2017. Procedure Description Procedure Name: Hemodialysis catheter. Procedure time out: side/site verified, patient ID confirmed, correct procedure Consent obtained: written Performed by: attending Indications: other (Acute renal failure, rhabdomyolysis, hyperkcalemia) Contraindications: none Description: Patient was prepped and draped in usual sterile manner. Portable ultrasound was used to identify right groin vessels. Femoral vein was entered without any complication, guidewire was advanced without difficulty. 20 cm long hemodialysis catheter was inserted following dilation. Patient tolerated procedure well, no complications. I performed the entire procedure myself. Patient tolerated procedure: well Post-procedure vital signs: reviewed and stable
[2017-08-31] MEDS ORDERED: SODIUM CHLORIDE 0.9% 1000ML 1,000 ML IV SCH ×2 (21:15)
[2017-08-31] MEDS: SODIUM BICARBONATE 8.4% INJ 150 MEQ in DEXTROSE 5% 1000ML 1,000 ML IV SCH (21:15)
--- NOTE | 2017-08-31 21:37 | Procedure Note ---
Procedure Note Date of Service Aug 31, 2017. (Manjinder Hall MD) 08/31/2017 (Linas. Palacio MD) Procedure Note Pre-Procedure Diagnosis: Hypotension Post-Procedure Diagnosis: Same Type of Procedure: Central Venous Catheter Placement Performing Physician: Dr. Manjinder Hall MD PGY 3 Family Medicine Attending/Supervising Physician: Dr. Virginia Palacio MD Critical Care Medicine Indication: Need for prolonged vasopressor support Consent: Detailed explanation of the procedure, treatment options, risks including but not limited to infection and bleeding, and benefits were explained to the family. A written informed consent was obtained and placed in the patient's chart. Technique: A time out was preformed identifying the correct procedure, the correct location with the nursing staff. The right neck was prepped with 2% chlorhexidine and draped with a full length sterile sheet in the usual fashion. 1% lidocaine was administered subcutaneously for local anesthesia. The right internal jugular vein was accessed under ultrasound guidance with an 18 gauge thin wall needle. A triple lumen catheter was inserted via the Seldinger technique. Blood was withdrawn from all lumens and flushed with normal saline. The catheter was sutured in place and a sterile dressing was applied over the site prior to removal of drapes. The patient tolerated the procedure well and there were no complications. Chest x ray is pending at this time. EBL: 3 cc Complication: None (Manjinder Hall MD) I was present for the entire time of procedure, well-placed catheter on the x- ray review, no complications. (Linas. Palacio MD)
--- NOTE | 2017-08-31 21:52 | DIAGNOSTIC IMAGING REPORT ---
CHEST ONE VIEW PORTABLE CLINICAL HISTORY: sp IJ line COMPARISON STUDY: Chest radiograph August 31, 2017 at 8:41 AM. FINDINGS: The tip of the endotracheal is 5 cm above the rachell. Tip of nasogastric tube is below the lower aspect of the image but at least within the proximal body of the stomach. The tip of the right internal jugular central line projects over the proximal SVC. There is no pneumothorax. Azygos fissure is noted. Cardiomediastinal silhouette is normal. Pulmonary vascularity is normal. No consolidation is identified. IMPRESSION: 1. No pneumothorax following placement of a right internal jugular central line. Tip projects over proximal SVC. 2. Tip of endotracheal tube 5 cm above rachell. 3. No acute cardiopulmonary findings. Electronically signed by: Tone See M.D. 08/31/2017 9:51 PM Dictated Date/Time: 08/31/2017 9:49 PM
[2017-08-31] MEDS: MIDAZOLAM 125MG/250ML D5W 250 ML IV PRN (23:33)
--- NOTE | 2017-08-31 23:52 | OPERATIVE REPORT ---
DATE OF OPERATION: 08/31/2017 PREOPERATIVE DIAGNOSIS: Bilateral lower extremity compartment syndrome. POSTOPERATIVE DIAGNOSIS: Same. PROCEDURE: Bilateral four-compartment fasciotomy. SURGEON: Dr. Jose. ANESTHETIC: General. PROCEDURE INDICATIONS: The patient is a 26-year-old male who had a drug overdose, found unresponsive. During resuscitation in the ICU, he developed compartment syndrome in both lower extremities. He could not wiggle or move his toes. Four-compartment fasciotomy has been recommended. The family understood the risks, options and benefits and agreed to have this procedure. PROCEDURE IN DETAIL: The patient was taken to the operating room and placed in supine position. After general anesthesia was accomplished, the right leg was addressed first. A longitudinal incision was made medially and laterally from just below the knee to just above the ankle. The fascia of all 4 components were released top to bottom. Bleeding was controlled using electrocautery. On the right lower extremity, the same was done. All 4 compartments were released. The muscle appeared on the pink side once the compartment was entered. As the compartment was released and the compartment fascia was divided the color of the muscle improved and the muscle was pink in its entirety on both lower extremities. Dressings were then applied to both lower extremities. The patient was transported back to the intensive care unit in stable condition. I attest to the content of the Intraoperative Record and any orders documented therein. Any exceptions are noted below. ISI
[2017-09-01] VITALS (24 sets, daily range): BP systolic 90–131; BP diastolic 51–79; PULSE 83–103; TEMP 36.6–37.2; O2SAT 95–100
[2017-09-01 00:55] LABS: BASO % 0.1 %; BASO ABS # 0.02 K/uL (0-0.2); HEMATOCRIT 48.8 % (42-52); IG% 0.5 %; LYMPH % 10.5 %; LYMPH ABS # 2.12 K/uL (1.2-3.4); MEAN CELL VOLUME 88.7 fL (80-100); MEAN CORPUSCULAR HEMOGLOBIN 29.3 pg (25-34); MEAN PLATELET VOLUME 11.2 fL (7.4-10.4); MONO % 8.7 %; NEUT % 80.2 %; PLATELET COUNT 168 K/uL (130-400); WHITE BLOOD COUNT 20.25 K/uL (4.8-10.8)
[2017-09-01 01:03] LABS: COMPLETE YES
[2017-09-01] MEDS ORDERED: FENTANYL CITRATE INJ 50 MCG/1 ML 2 ML VIAL IV PRN (01:30)
[2017-09-01 02:03] LABS: ALKALINE PHOSPHATASE 50 U/L (45-117); ALT/SGPT 1727 U/L (12-78); BLOOD UREA NITROGEN 24 mg/dl (7-18); BUN/CREATININE RATIO 10.5 (10-20); CARBON DIOXIDE 19 mmol/L (21-32); CHLORIDE 107 mmol/L (98-107); GLUCOSE 159 mg/dl (70-99); MAGNESIUM 2.3 mg/dl (1.8-2.4); POTASSIUM 6.8 mmol/L (3.5-5.1); SODIUM 137 mmol/L (136-145)
[2017-09-01] MEDS ORDERED: CALCIUM GLUCONATE 10% 1,000 MG in SODIUM CHLORIDE 0.9% 50ML 50 ML IV STA ×2 (02:05→05:29)
[2017-09-01] MEDS ORDERED: NovoLIN-R INSULIN PER UNIT CHARGE IV STA (02:05)
[2017-09-01 02:16] LABS: AST/SGOT 7086 U/L (15-37)
[2017-09-01 02:17] LABS: CALCIUM < 5.0 mg/dl (8.5-10.1)
[2017-09-01] MEDS ORDERED: DEXTROSE 50% 50 ML SYR IV STA (02:20)
[2017-09-01] MEDS ORDERED: INSULIN REGULAR 10 UNITS in SYRINGE 9.9 ML IV SCH (02:30)
[2017-09-01] MEDS: NOREPINEPHRINE BIT INJ 8 MG in DEXTROSE 5% 500ML 500 ML IV PRN (03:26)
[2017-09-01 04:56] LABS: BASO % 0.1 %; BASO ABS # 0.01 K/uL (0-0.2); COMPLETE YES; EOS % 0.1 %; IG% 0.2 %; LYMPH % 8.8 %; LYMPH ABS # 1.48 K/uL (1.2-3.4); MEAN CELL VOLUME 88.7 fL (80-100); MEAN CORPUSCULAR HEMOGLOBIN 31.5 pg (25-34); MEAN CORPUSCULAR HGB CONC 35.5 g/dl (32-36); MEAN PLATELET VOLUME 11.6 fL (7.4-10.4); MONO % 10.3 %; NEUT % 80.5 %; PLATELET COUNT 117 K/uL (130-400); RED BLOOD COUNT 4.96 M/uL (4.7-6.1); WHITE BLOOD COUNT 16.83 K/uL (4.8-10.8)
[2017-09-01 05:07] LABS: INR 1.6 (0.9-1.1); PARTIAL THROMBOPLASTIN RATIO 1.7
[2017-09-01] MEDS: SODIUM BICARBONATE 8.4% INJ 150 MEQ in DEXTROSE 5% 1000ML 1,000 ML IV SCH (05:13)
[2017-09-01 05:25] LABS: CALCIUM < 5.0 mg/dl (8.5-10.1)
[2017-09-01 05:26] LABS: ALKALINE PHOSPHATASE 51 U/L (45-117); ALT/SGPT 1802 U/L (12-78); BLOOD UREA NITROGEN 26 mg/dl (7-18); BUN/CREATININE RATIO 9.9 (10-20); CARBON DIOXIDE 20 mmol/L (21-32); CHLORIDE 107 mmol/L (98-107); GLUCOSE 115 mg/dl (70-99); MAGNESIUM 2.3 mg/dl (1.8-2.4); PHOSPHORUS 6.8 mg/dl (2.5-4.9); POTASSIUM 6.4 mmol/L (3.5-5.1); SODIUM 136 mmol/L (136-145)
[2017-09-01 05:45] LABS: AST/SGOT 7308 U/L (15-37)
[2017-09-01 05:48] LABS: ISTAT ARTERIAL BLOOD GAS HCO3 21 meq/L (19-24); ISTAT ARTERIAL BLOOD GAS PCO2 41 mmHg (35-46); ISTAT ARTERIAL BLOOD GAS PO2 97 mmHg (80-95); ISTAT ARTERIAL BLOOD GAS pH 7.33 (7.35-7.45); ISTAT CARBON DIOXIDE 22 mEq/l (24-31); ISTAT DELIVERY SYSTEM Ventilator; ISTAT FIO2 21 %; ISTAT PEEP 5; ISTAT RATE 24; ISTAT SITE Art Line; VE 12.6; Vt 550
[2017-09-01] MEDS ORDERED: VANCOMYCIN CONSULT ACTIVE PRN (06:00)
[2017-09-01] MEDS ORDERED: VANCOMYCIN INJ 2,500 MG in SODIUM CHLORIDE 0.9% 500ML 500 ML IV SCH ×4 (06:00)
[2017-09-01 08:08] LABS: ISTAT ARTERIAL BLOOD GAS HCO3 22 meq/L (19-24); ISTAT ARTERIAL BLOOD GAS PCO2 36 mmHg (35-46); ISTAT ARTERIAL BLOOD GAS PO2 90 mmHg (80-95); ISTAT ARTERIAL BLOOD GAS pH 7.39 (7.35-7.45); ISTAT CARBON DIOXIDE 23 mEq/l (24-31); ISTAT DELIVERY SYSTEM Ventilator; ISTAT FIO2 21 %; ISTAT PEEP 5; ISTAT RATE 24; ISTAT SITE Art Line; VE 12.8; Vt 550
[2017-09-01] MEDS ORDERED: FENTANYL 1250MCG/250ML NSS IV PRN (08:45)
[2017-09-01] MEDS ORDERED: VANCOMYCIN INJ 1,000 MG in SODIUM CHLORIDE 0.9% 250ML 250 ML IV SCH (09:00)
[2017-09-01] MEDS: NOVASOURCE RENAL 1000ML BAG OG SCH ×2 (09:00→13:00)
--- NOTE | 2017-09-01 09:00 | ECHOCARDIOGRAM REPORT ---
*NOTICE TO RECEIVING LIBERTARIAN AGENCY This information is strictly Confidential and protected under [place] law. [place] law prohibits you from making any further disclosure of this information unless further disclosure is expressly permitted by the written consent of the person to whom it pertains or is authorized by law. A general authorization for the release of medical or other information is not sufficient for this purpose. Hospital accepts no responsibility if the information is made available to any other person, INCLUDING THE PATIENT. Interpretation Summary * Name: ALIN SNOW Study Date: 09/01/2017 07:46 AM BP: 131/75 mmHg * Patient Location: .MSICU\S\E106\S\1 HR: 94 * : 1990 (M/d/yyyy) Gender: Male Height: 70 in * Age: 26 yrs Ethnicity: CA Weight: 235 lb * Ordering Physician: Torsten Aguayo * Referring Physician: Carlito Farmer * Performed By: Kaitlynn Michel RDCS * * Reason For Study: Hx of IVDU, b/l LE edema, ? endocarditis * BSA: 2.2 m2 * -- Conclusions -- * 1. Normal left ventricular size with severely reduced systolic function. Global akinesis with relative sparing of the basal segments (basal segments appear mildly hypokinetic to normal). No left ventricular hypertrophy. No visualized apical thrombus. * 2. Normal right ventricular size with moderately reduced systolic function. * 3. No significant valvular abnormalities visualized (aortic valve not well seen). Cannot rule out vegetation on TTE study. * 4. No prior study available for comparison. Dr. Palacio was notified of findings at approximately 08:50 AM. Procedure Details * A complete two-dimensional transthoracic echocardiogram was performed (2D, M-mode, Doppler and color flow Doppler). Left Ventricle * Normal left ventricular size with severely reduced systolic function. Global akinesis with relative sparing of the basal segments (basal segments appear mildly hypokinetic to normal). No left ventricular hypertrophy. Right Ventricle * Normal right ventricular size with moderately reduced systolic function. * The right ventricular systolic function is reduced as assessed by tricuspid annular plane systolic excursion (TAPSE) (TAPSE <1.6 cm). Atria * The left atrial size is normal. * Right atrial size is normal. * There is no evidence of atrial septal defect, but resolution does not allow assessment for a patent foramen ovale. Mitral Valve * The mitral valve is grossly normal. * There is no mitral valve stenosis. * There is no mitral regurgitation noted. Tricuspid Valve * The tricuspid valve is not well visualized, but is grossly normal. * There is no tricuspid stenosis. * There is trace tricuspid regurgitation. Aortic Valve * The aortic valve is not well visualized. * No hemodynamically significant valvular aortic stenosis. * There is no significant aortic regurgitation. Pulmonic Valve * The pulmonic valve is not well visualized. Great Vessels * The aortic root is not well visualized. * Aortic arch of normal dimension. Pericardium/Pleural * There is no pericardial effusion. Great Vessels * Normal IVC size. MMode 2D Measurements and Calculations IVSd 1.0 cm LVIDd 4.6 cm LVIDs 3.8 cm LVPWd 1.0 cm IVS/LVPW 1.0 FS 17.2 % EDV(Teich) 97.0 ml ESV(Teich) 62.0 ml EF(Teich) 36.1 % EDV(cubed) 96.9 ml ESV(cubed) 54.9 ml EF(cubed) 43.3 % LV mass(C)d 160.6 grams LV mass(C)dI 71.8 grams/m\S\2 SV(Teich) 35.0 ml SI(Teich) 15.7 ml/m\S\2 SV(cubed) 42.0 ml SI(cubed) 18.8 ml/m\S\2 LA dimension 2.1 cm LVAd ap4 30.1 cm\S\2 LVLd ap4 9.3 cm EDV(MOD-sp4) 84.7 ml EDV(sp4-el) 83.0 ml LVAs ap4 25.6 cm\S\2 LVLs ap4 8.8 cm ESV(MOD-sp4) 62.8 ml ESV(sp4-el) 62.9 ml EF(MOD-sp4) 25.9 % EF(sp4-el) 24.2 % SV(MOD-sp4) 21.9 ml SI(MOD-sp4) 9.8 ml/m\S\2 SV(sp4-el) 20.1 ml SI(sp4-el) 9.0 ml/m\S\2 Doppler Measurements and Calculations MV E max jim 50.4 cm/sec MV dec time 0.24 sec Ao V2 max 80.1 cm/sec Ao max PG 2.6 mmHg Ao max PG (full) 1.1 mmHg LV V1 max PG 1.4 mmHg LV V1 max 59.7 cm/sec TR max jim 188.7 cm/sec
[2017-09-01] MEDS ORDERED: HEPARIN SOD 5000 UNIT/0.5 ML CARP SC SCH (09:30)
--- NOTE | 2017-09-01 09:39 | Critical Care Progress Note ---
Critical Care Progress Note Date of Service Sep 01, 2017. Attending Dr. Palacio Subjective Patient was seen at the bedside. No acute event overnight. He is on NE, maintaining BP. Continue to be on Versed for agitation. He is intubated and sedated. Couldn't obtain full ROS. Objective Vital signs were reviewed GENERAL - intubated, on vent and sedated, responses to pain EYES - no discharge was noted EARS - No deformities of external structures noted on gross examination bilaterally. NECK - Supple LUNGS - Chest wall symmetric. Good air movement bilaterally. No wheezing or rhonchi was noted. CARDIAC - RRR, normal S1/S2. No murmur, rubs, or gallops appreciated. ABDOMEN - Soft, non-tender, normo-active bowel sounds, no masses, no rebound or guarding. No palpable masses, hepatosplenomegaly, or ascites noted. EXTREMITIES - fasciotomy of b/l LE, viable tissue was noted on b/l LE, no necrosis, can't appreciated dorsalis pedis pulses on b/l LE Neuro: On Vent and sedated Current SOFA Score SOFA Score Response (Comments) Value PaO2/FiO2 (mmHg) < 400 1 SaO2 / FIO2 221 - 301 1 Platelets (x10) < 150 1 Bilirubin (mg/dL) < 1.2 0 Mani Coma Score 6 - 9 (patient was intubated couldn't obtain verbal score) 3 Level of Hypotension No Hypotension 0 Creatinine (mg/dL) 2.0 - 3.4 2 Total 8 Assessment & Plan This is a 26 y/o male with hx of polysubstance abuse presented to the ED via ambulance for unresponsive and acute hypoxic respiratory failure, 2/2 possible of multiple drug abuse. Patient is currently intubated and on vent. Patient had bilateral four-compartment fasciotomy yesterday by Dr. Jose. Rigidity still noted on b/l thigh. Echo, repeat CPK and uric acid are ordered. Given the current complex medical conditions patient might be transfer to [place] for further management. Decision will be based on the lab results and the improvement of the patient's current condition. If his condition doesn't seem to improve by later afternoon, will consider transfer him to [place]. Case was discussed with Dr. Jose. Patient will have HD today given continue elevation of potassium. Started him on Vaco given BCx positive for gram positive cocci. Patient is restrained given agitation. Neuro - * CAM ICU: unable to perform, patient is intubated and sedated, responses to pain * Fentanyl 50mcg q1h prn for pain * IV Midazolam prn for agitation * Ativan 2mg q4h prn for anxiety * IV Ketamine prn Cardiac - * EKG in ED showed wide complex tachycardia, most likely secondary to severe hyperkalemia * Hypotension - BP improved * s/p 12L NSS * d/yonatan Sodium bicarb, will start D5+ NSS @150mls/hr * NE bitartrate 8mg/Dextrose per protocol * Elevated troponin * most likely secondary to demand supply mismatch in the setting of severe hyperkalemia and hypotension * Echo was performed to rule out endocarditis. Showed normal LV with severely reduced systolic function, no valvular abnormalities was noted. Respiratory - * Acute hypoxic/hypercapnic respiratory failure * Most likely secondary to substance abuse * Urine tox positive for opiates and marijuana, rest are pending * Currently intubated and on Vent (Rate 24, Minute Vent 12.8, FiO2 30, Vt 550, PEEP 5) * Continue to monitor GI - * Diet : NPO (nutrition consult) * Shock Liver * Continue to have elevated AST and ALT * Coag profile normal * IV Pantoprazole for GI prophylaxis * Continue to monitor RENAL/LYTES - * Acute renal failure * Could be multifactorial, secondary to rhabdomyolysis and/or substance induced * Repeat CPK >322837 * Repeat HD today given continue elevated potassium * s/p 12L NSS * Will start D5+NSS @ 150mls/hr * Monitor PRP * Nephrology is consulted and will continue to appreciate his recommendation * Hyperkalemia * Most likely secondary to rhabdomyolysis * Continue to stay elevated * Received bicarb, calcium gluconate and insulin + D50 in ED * Will repeat HD today * Hypocalcemia * Received 2g of calcium overnight * Check ionized Ca2+ - pending * Patient has elevated phos which can also contribute to the decrease calcium * Will monitor closely * Lactic acid is also elevated MSK - * Compartment syndrome of b/l LE * Physical exam of the b/l LE revealed compartment syndrome * Bilateral four-compartment fasciotomy by Dr. Jose * Patient noted to have tightness on the lower thigh, will check the pressure * Continue to monitor closely * Will need to consult wound care of patient stays here * Rhabdomyolysis * CPK>40,000, lactic acid also increased * Repeat CPK - pending * s/p 12L IVF * Will have 2nd HD today given elevated potassium * Continue IVF * Continue to monitor closely - * [facility] - * Glucose was elevated overnight. * Received insulin * Glucose is controlled now HEME - * H&H is stable * No h/o of heme problem ID - * BCx grow gram positive cocci * Start Vanco, consult pharmacy * Echo ordered to rule out endocarditis - pending * Nasal swab neg for MRSA DVT PROPHYLAXIS - * Heparin 5000unit q12 Resident Physician Supervision Note: I was personally present with Dr.Najnin Aguayo during the history and exam. I discussed the case with the resident and agree with the findings and plan as documented in the note. In summary, the patient is a 26 year old man with history of anxiety and opiate abuse who was found unresponsive by his roommate slumped in the chair on 08/31/2017. Patient was brought to [facility] [address] emergency room by EMS. There was no response to intranasal Narcan. Tox screen was positive for opiates and cannabinoids. There is history of possible Xanax abuse. Patient was intubated and placed on full mechanical ventilatory support due to his poor ability to protect the airway and hypocapnia. He was started on norepinephrine drip at 0.4 g/kg/min and transferred critically ill to medical intensive care unit for further management. 08/31/17- bilateral fasciotomies below the knee. First hemodialysis session. Uneventful night. Decreasing norepinephrine requirement. Assessment and plan: 1. Acute mental status change secondary to opiate/benzodiazepine abuse/ intoxication. 2. Acute respiratory failure, intubation for airway protection. 3. Severe rhabdomyolysis. POD #1 sp bilateral fasciotomies below knee. Muscles are viable. Rising CPK levels 40,000 to above 100,000. Tense bilateral anterior thigh compartments, right forearm compartments, suspected ongoing injury. Patient was taken emergently by Dr. Johnson for vascular surgery for further fasciotomies of bilateral thighs and right forearm. 4. Acute kidney injury secondary to rhabdomyolysis and septic shock. Patient completed second hemodialysis treatment. He required additional treatment with glucose, IV insulin, nebulized albuterol for hyperkalemia. 5. Shock multifactorial, intravascular volume depletion, sepsis, gram-positive cocci bacteremia. Patient was treated with Zosyn and vancomycin. Fluid resuscitation +12 L since admission, norepinephrine drip down from 0.4 g to 0.1 g/kilogram/minute. 6. Gram-positive cocci bacteremia in the setting of active IV drug abuse. Vancomycin 2.5 g given 6 AM 09/01/17. 7. Cardiovascular: Septic cardiomyopathy. Transthoracic echocardiography from today revealed ejection fraction 25%, global hypokinesia, moderate right ventricular dysfunction, competent valves, no visible vegetations. 8. Neurologic: Requires heavy sedation with midazolam 10 mg per hour, fentanyl 100 g/hour, off ketamine drip. 9. Shock liver, will follow aminotransferases, coagulopathy profile. 10. History of anxiety, not treated. 11. Opiate, benzodiazepine, marijuana abuse. Patient was extensively discussed with the nephrology, vascular surgery colleagues, his mother at the bedside. Decision was made to transfer patient to [facility] intensive care unit for continuation of care. Patient was discussed with accepting anesthesiologist/printing manager afternoon babysitter. CCT 120 min. RAMPART II Score Date Score Was Generated: Sep 01, 2017 Consults & Procedures Consultants: Nephrology, Vascular surgery Procedures: A-line placement, Central Venous Catheter Placement Data Medications: Current Inpatient Medications Medications (Trade) Dose Ordered Sig/Ignacio Route Start Time Stop Time Status Last Admin Dose Admin Norepinephrine Bitartrate 8 mg/ Dextrose 508 ml @ 0 mls/hr Q0M PRN IV 08/31/17 12:30 09/30/17 12:29 09/01/17 03:26 101 MLS/HR Pantoprazole Sodium 40 mg/ Syringe 10 ml @ 5 mls/min DAILY@1100 IV 09/01/17 11:00 10/01/17 10:59 Ketamine HCl 500 mg/Sodium Chloride 500 ml @ 0 mls/hr Q0M PRN IV 08/31/17 15:30 09/30/17 15:29 08/31/17 18:23 6 MLS/HR Midazolam HCl 250 ml @ 0 mls/hr Q0M PRN IV 08/31/17 18:30 09/30/17 18:29 08/31/17 23:33 4 MLS/HR Lorazepam (Ativan Inj) 2 mg Q4H PRN IV 08/31/17 18:30 09/30/17 18:29 Sodium Bicarbonate 150 meq/Dextrose 1,150 ml @ 150 mls/hr Q7H40M IV 08/31/17 21:15 09/30/17 21:14 09/01/17 05:13 150 MLS/HR Fentanyl Citrate (Fentanyl Inj) 50 mcg Q1H PRN IV 09/01/17 01:30 09/15/17 01:29 09/01/17 02:00 50 MCG Vancomycin HCl (Consult) 1 ea UD PRN N/A 09/01/17 06:00 10/01/17 05:59 Vancomycin HCl 2500 mg/Sodium Chloride 550 ml @ 200 mls/hr TODAY@0600 IV 09/01/17 06:00 09/01/17 08:44 09/01/17 05:56 200 MLS/HR Vital Signs: Date Time Temp Pulse Resp B/P (MAP) Pulse Ox O2 Delivery O2 Flow Rate FiO2 09/01/17 06:05 94 24 131/75 (93) 100 Mechanical Ventilator 21 09/01/17 05:00 21 09/01/17 04:00 100 Mechanical Ventilator 21 09/01/17 04:00 21 09/01/17 03:00 95 25 119/61 (80) 100 Mechanical Ventilator 21 09/01/17 02:30 98 24 90/51 (64) 100 09/01/17 02:17 21 09/01/17 02:00 98 26 113/75 (88) 100 Mechanical Ventilator 21 09/01/17 01:30 97 26 112/63 (79) 100 09/01/17 01:00 98 25 117/66 (83) 99 Mechanical Ventilator 21 09/01/17 00:30 99 25 96/53 (67) 100 09/01/17 00:00 21 09/01/17 00:00 36.8 99 25 109/79 (89) 100 09/01/17 00:00 100 Mechanical Ventilator 21 08/31/17 23:02 21 08/31/17 21:30 102 24 101/59 (73) 100 30 08/31/17 21:15 30 08/31/17 21:00 102 22 115/66 (82) 92 Mechanical Ventilator 50 08/31/17 20:30 100 23 107/59 (75) 96 08/31/17 20:12 100 107/59 (75) 08/31/17 20:00 100 Mechanical Ventilator 50 08/31/17 20:00 103 21 132/75 (94) 99 Mechanical Ventilator 50 08/31/17 20:00 50 08/31/17 19:45 102 116/63 08/31/17 19:30 104 122/68 08/31/17 19:30 104 23 122/68 (86) 99 08/31/17 19:15 100 117/66 08/31/17 19:00 102 22 102/52 (69) 100 Mechanical Ventilator 50 08/31/17 19:00 102 102/52 08/31/17 18:45 103 94/50 08/31/17 18:45 40 08/31/17 18:30 101 77/39 08/31/17 18:30 101 22 77/39 (52) 98 08/31/17 18:15 106 110/60 08/31/17 18:00 102 104/56 08/31/17 18:00 37.4 101 22 100/53 (69) 99 Mechanical Ventilator 50 08/31/17 17:51 100 94/48 08/31/17 17:45 36.8 101 105/53 (70) 08/31/17 16:08 111 100/59 (73) 08/31/17 16:00 50 08/31/17 16:00 113 22 98/57 (71) 96 Mechanical Ventilator 50 08/31/17 16:00 100 Mechanical Ventilator 50 08/31/17 15:45 112 102/58 08/31/17 15:30 114 91/57 08/31/17 15:15 116 90/52 08/31/17 15:00 114 88/53 08/31/17 14:45 117 85/51 08/31/17 14:40 40 08/31/17 14:31 128 22 55/34 100 Mechanical Ventilator 50 08/31/17 14:30 111 80/53 08/31/17 14:29 116 22 82/56 (65) 100 Mechanical Ventilator 50 08/31/17 14:15 115 78/50 08/31/17 14:00 117 73/44 08/31/17 13:45 113 72/48 08/31/17 13:30 116 65/41 08/31/17 13:20 115 73/47 08/31/17 13:10 36.8 116 63/41 (48) 08/31/17 11:46 50 08/31/17 10:25 92/42 08/31/17 10:11 135 88/57 08/31/17 09:57 135 106/33 92 Mechanical Ventilator 08/31/17 09:36 98/34 08/31/17 09:31 136 18 107/62 95 Mechanical Ventilator 08/31/17 09:10 137 18 153/79 96 Mechanical Ventilator 08/31/17 08:57 138 121/80 08/31/17 08:46 138 51/39 08/31/17 08:44 100 08/31/17 08:39 128 08/31/17 08:35 37.4 126 16 55/34 Ambu-Bag Laboratory Results: Last 24 Hours Test 08/31/17 08:37 08/31/17 08:41 08/31/17 08:55 08/31/17 09:45 White Blood Count 25.07 K/uL Red Blood Count 6.05 M/uL Hemoglobin 19.5 g/dL Hematocrit 56.3 % Mean Corpuscular Volume 93.1 fL Mean Corpuscular Hemoglobin 32.2 pg Mean Corpuscular Hemoglobin Concent 34.6 g/dl Platelet Count 291 K/uL Mean Platelet Volume 11.1 fL Neutrophils (%) (Auto) 81.4 % Lymphocytes (%) (Auto) 6.7 % Monocytes (%) (Auto) 11.0 % Eosinophils (%) (Auto) 0.1 % Basophils (%) (Auto) 0.1 % Neutrophils # (Auto) 20.44 K/uL Lymphocytes # (Auto) 1.67 K/uL Monocytes # (Auto) 2.75 K/uL Eosinophils # (Auto) 0.02 K/uL Basophils # (Auto) 0.02 K/uL RDW Standard Deviation 42.8 fL RDW Coefficient of Variation 12.6 % Immature Granulocyte % (Auto) 0.7 % Immature Granulocyte # (Auto) 0.17 K/uL Prothrombin Time 11.8 SECONDS Prothromb Time International Ratio 1.1 Activated Partial Thromboplast Time 27.1 SECONDS Partial Thromboplastin Ratio 1.0 Sodium Level 136 mmol/L Potassium Level 7.7 mmol/L Chloride Level 95 mmol/L Carbon Dioxide Level 17 mmol/L Anion Gap 24.0 mmol/L 24.0 mmol/L Blood Urea Nitrogen 25 mg/dl Creatinine 3.30 mg/dl Est Creatinine Clear Calc Drug Dose 38.0 ml/min Estimated GFR () 28.1 Estimated GFR (Non- 24.2 BUN/Creatinine Ratio 7.5 Random Glucose 80 mg/dl Calcium Level 7.9 mg/dl Total Bilirubin 1.1 mg/dl Direct Bilirubin 0.6 mg/dl Aspartate Amino Transf (AST/SGOT) 2289 U/L Alanine Aminotransferase (ALT/SGPT) 957 U/L Alkaline Phosphatase 104 U/L Total Creatine Kinase 07891 U/L Troponin I 1.220 ng/ml Total Protein 8.1 gm/dl Albumin 4.1 gm/dl Salicylates Level 1.7 mg/dl Acetaminophen Level < 2 ug/ml Ethyl Alcohol mg/dL < 3.0 mg/dl Venous Blood pH 7.06 Venous Blood Partial Pressure CO2 75 mmHg Venous Blood Partial Pressure O2 28 mmHg Venous Blood HCO3 21 mmol/L Venous Blood Oxygen Saturation < 60.0 % Venous Blood Base Excess -11.4 mEq/L Lactic Acid Level 12.7 mmol/L Bedside Hemoglobin 19.4 g/dl 17.3 g/dl Bedside Hematocrit 57 % 51 % Bedside Sodium 134 mEq/L 130 mEq/L Bedside Potassium 7.6 mEq/L 7.8 mEq/L Bedside Chloride 98 mEq/L Bedside Total CO2 21 mEq/l Bedside Blood Urea Nitrogen 37 mg/dl Bedside Creatinine 4.3 mg/dl Bedside Glucose (other) 75 mg/dl Bedside Ionized Calcium (Charles) 0.87 mmol/l Bedside Blood Gas pH (LAB) 7.03 Bedside Blood Gas pCO2 (LAB) 75 mmHg Bedside Blood Gas pO2 (LAB) 321 mmHg Bedside Blood Gas HCO3 (LAB) 20 meq/L Bedside Blood Gas Total CO2 22 mEq/l Bedside Blood Gas Base Excess (LAB) -11.0 meq/L Bedside Blood Gas O2 Saturation 100.0 % Test 08/31/17 10:05 08/31/17 11:24 08/31/17 14:00 08/31/17 15:22 Urine Opiates Screen POS POS Urine Methadone, Qualitative NEG NEG Urine Barbiturates NEG NEG Urine Phencyclidine (PCP) Level NEG NEG Ur Amphetamine/Methamphetamine NEG NEG MDMA (Ecstasy) Screen NEG NEG Urine Benzodiazepines Screen NEG NEG Urine Cocaine Metabolite NEG NEG Urine Marijuana (THC) POS POS Bedside Hemoglobin 17.0 g/dl Bedside Hematocrit 50 % Bedside Blood Gas pH (LAB) 7.38 Bedside Blood Gas pCO2 (LAB) 47 mmHg Bedside Blood Gas pO2 (LAB) 84 mmHg Bedside Blood Gas HCO3 (LAB) 27 meq/L Bedside Blood Gas Total CO2 29 mEq/l Bedside Blood Gas Base Excess (LAB) 2.0 meq/L Bedside Blood Gas O2 Saturation 96.0 % Bedside Sodium 137 mEq/L Bedside Potassium 6.3 mEq/L Urine Color BROWN Urine Appearance CLOUDY Urine pH Urine Specific [place] 1.019 Urine Protein Urine Glucose (UA) Urine Ketones Urine Occult Blood Urine Nitrite Urine Bilirubin Urine Urobilinogen Urine Leukocyte Esterase Urine RBC 0-4 /hpf Urine WBC 5-10 /hpf Urine Epithelial Cells 0-5 /lpf Urine Amorphous Sediment PRESENT Urine Bacteria NEG Urine Hyaline Casts 1-5 /lpf Urine Granular Casts 0-3 /lpf Potassium Level 5.7 mmol/L Test 08/31/17 18:14 08/31/17 18:23 08/31/17 18:24 08/31/17 23:59 White Blood Count 19.75 K/uL Red Blood Count 5.59 M/uL Hemoglobin 17.2 g/dL Hematocrit 49.7 % Mean Corpuscular Volume 88.9 fL Mean Corpuscular Hemoglobin 30.8 pg Mean Corpuscular Hemoglobin Concent 34.6 g/dl Platelet Count 197 K/uL Mean Platelet Volume 11.3 fL Neutrophils (%) (Auto) 83.5 % Lymphocytes (%) (Auto) 9.4 % Monocytes (%) (Auto) 6.6 % Eosinophils (%) (Auto) 0.0 % Basophils (%) (Auto) 0.1 % Neutrophils # (Auto) 16.48 K/uL Lymphocytes # (Auto) 1.86 K/uL Monocytes # (Auto) 1.31 K/uL Eosinophils # (Auto) 0.00 K/uL Basophils # (Auto) 0.02 K/uL RDW Standard Deviation 41.4 fL RDW Coefficient of Variation 12.7 % Immature Granulocyte % (Auto) 0.4 % Immature Granulocyte # (Auto) 0.08 K/uL Blood Gas Sample Site Art Line Bedside Blood Gas pH (LAB) 7.26 Bedside Blood Gas pCO2 (LAB) 48 mmHg Bedside Blood Gas pO2 (LAB) 101 mmHg Bedside Blood Gas HCO3 (LAB) 21 meq/L Bedside Blood Gas Total CO2 23 mEq/l Bedside Blood Gas Base Excess (LAB) -6.0 meq/L Bedside Blood Gas O2 Saturation 97.0 % Iban Test NA Sodium Level 136 mmol/L Potassium Level 6.2 mmol/L Chloride Level 106 mmol/L Carbon Dioxide Level 19 mmol/L Anion Gap 11.0 mmol/L Blood Urea Nitrogen 19 mg/dl Creatinine 1.70 mg/dl Est Creatinine Clear Calc Drug Dose 73.8 ml/min Estimated GFR () 62.7 Estimated GFR (Non- 54.1 BUN/Creatinine Ratio 11.1 Random Glucose 150 mg/dl Lactic Acid Level 3.1 mmol/L Calcium Level 5.3 mg/dl Phosphorus Level 6.6 mg/dl Total Bilirubin 0.9 mg/dl Aspartate Amino Transf (AST/SGOT) 6384 U/L Alanine Aminotransferase (ALT/SGPT) 1507 U/L Alkaline Phosphatase 59 U/L Troponin I 19.500 ng/ml Total Protein 4.5 gm/dl Albumin 2.2 gm/dl Globulin 2.3 gm/dl Albumin/Globulin Ratio 1.0 Hepatitis B Surface Antigen NEG Hepatitis B Surface Antibody POS Bedside Glucose 122 mg/dl Test 09/01/17 00:48 09/01/17 04:20 09/01/17 04:34 09/01/17 05:32 White Blood Count 20.25 K/uL 16.83 K/uL Red Blood Count 5.50 M/uL 4.96 M/uL Hemoglobin 16.1 g/dL 15.6 g/dL Hematocrit 48.8 % 44.0 % Mean Corpuscular Volume 88.7 fL 88.7 fL Mean Corpuscular Hemoglobin 29.3 pg 31.5 pg Mean Corpuscular Hemoglobin Concent 33.0 g/dl 35.5 g/dl Platelet Count 168 K/uL 117 K/uL Mean Platelet Volume 11.2 fL 11.6 fL Neutrophils (%) (Auto) 80.2 % 80.5 % Lymphocytes (%) (Auto) 10.5 % 8.8 % Monocytes (%) (Auto) 8.7 % 10.3 % Eosinophils (%) (Auto) 0.0 % 0.1 % Basophils (%) (Auto) 0.1 % 0.1 % Neutrophils # (Auto) 16.24 K/uL 13.55 K/uL Lymphocytes # (Auto) 2.12 K/uL 1.48 K/uL Monocytes # (Auto) 1.76 K/uL 1.74 K/uL Eosinophils # (Auto) 0.01 K/uL 0.01 K/uL Basophils # (Auto) 0.02 K/uL 0.01 K/uL RDW Standard Deviation 41.3 fL 40.9 fL RDW Coefficient of Variation 12.7 % 12.7 % Immature Granulocyte % (Auto) 0.5 % 0.2 % Immature Granulocyte # (Auto) 0.10 K/uL 0.04 K/uL Sodium Level 137 mmol/L 136 mmol/L Potassium Level 6.8 mmol/L 6.4 mmol/L Chloride Level 107 mmol/L 107 mmol/L Carbon Dioxide Level 19 mmol/L 20 mmol/L Anion Gap 9.0 mmol/L 9.0 mmol/L Blood Urea Nitrogen 24 mg/dl 26 mg/dl Creatinine 2.30 mg/dl 2.60 mg/dl Est Creatinine Clear Calc Drug Dose 57.9 ml/min 51.2 ml/min Estimated GFR () 43.5 37.5 Estimated GFR (Non- 37.5 32.3 BUN/Creatinine Ratio 10.5 9.9 Random Glucose 159 mg/dl 115 mg/dl Calcium Level < 5.0 mg/dl < 5.0 mg/dl Magnesium Level 2.3 mg/dl 2.3 mg/dl Total Bilirubin 0.7 mg/dl 0.7 mg/dl Direct Bilirubin 0.3 mg/dl 0.3 mg/dl Aspartate Amino Transf (AST/SGOT) 7086 U/L 7308 U/L Alanine Aminotransferase (ALT/SGPT) 1727 U/L 1802 U/L Alkaline Phosphatase 50 U/L 51 U/L Total Protein 3.6 gm/dl 3.5 gm/dl Albumin 1.7 gm/dl 1.5 gm/dl Bedside Glucose 109 mg/dl Prothrombin Time 18.0 SECONDS Prothromb Time International Ratio 1.6 Activated Partial Thromboplast Time 42.9 SECONDS Partial Thromboplastin Ratio 1.7 Phosphorus Level 6.8 mg/dl Blood Gas Sample Site Art Line Bedside Blood Gas pH (LAB) 7.33 Bedside Blood Gas pCO2 (LAB) 41 mmHg Bedside Blood Gas pO2 (LAB) 97 mmHg Bedside Blood Gas HCO3 (LAB) 21 meq/L Bedside Blood Gas Total CO2 22 mEq/l Bedside Blood Gas Base Excess (LAB) -4.0 meq/L Bedside Blood Gas O2 Saturation 96.0 % Iban Test NA Oxygen Delivery Device Ventilator Bedside Oxygen Rate (breaths/min) 24 Blood Gas Minute Ventilation 12.6 Bedside FiO2 21 % Blood Gas Tidal Volume 550 Blood Gas PEEP 5
--- NOTE | 2017-09-01 09:44 | Nephrology Progress Note ---
Nephrology Progress Note Date of Service Sep 01, 2017. Chief Complaint Rhabdomyolysis resulting in EDGAR and need for HD Subjective Mr. Ponce was seen & examined in the ICU this morning. His medical care was discussed w/ the ICU team. The patient was dialyzed emergently yesterday for treatment of hyperkalemia. HD RN notes were reviewed. Treatment was interrupted after 2 hours for bilateral LE fasciotomies. Treatment was resumed and completed without complication following surgery. Mr. Ponce remains sedated, mechanically ventilated and on blood pressure support. ICU team reports pulses in patients feet but remain vigilant for the potential development of compartment syndrome in the proximal legs. Review of Systems Unable to obtain ROS Vital Signs Last 8 Hrs Date Time Temp Pulse Resp B/P (MAP) Pulse Ox O2 Delivery O2 Flow Rate FiO2 09/01/17 08:00 30 09/01/17 08:00 100 Mechanical Ventilator 30 09/01/17 08:00 97 24 108/64 (79) 100 09/01/17 07:35 21 09/01/17 06:05 94 24 131/75 (93) 100 Mechanical Ventilator 21 09/01/17 05:00 21 09/01/17 04:00 100 Mechanical Ventilator 21 09/01/17 04:00 21 09/01/17 03:00 95 25 119/61 (80) 100 Mechanical Ventilator 21 09/01/17 02:30 98 24 90/51 (64) 100 09/01/17 02:17 21 09/01/17 02:00 98 26 113/75 (88) 100 Mechanical Ventilator 21 09/01/17 01:30 97 26 112/63 (79) 100 Last Recorded Weight Weight (Kilograms): 107.000 Physical Exam General Appearance: + pertinent finding (acutely ill appearing on mechanical ventilation) Head: normocephalic Eyes: PERRL, EOMI Neck: no adenopathy Respiratory/Chest: + pertinent finding (coarse breath sounds bilaterally) Cardiovascular: regular rate, rhythm Abdomen/GI: soft (+ bowel sounds) Genitourinary - Male: + pertinent finding (smyth catheter in place draining dark urine) Extremities/Musculoskelatal: + pertinent finding (both lower legs wrapped) Neurologic/Psych: + pertinent finding (sedated on mechanical ventilator) Family History Unknown Social History Smokeless Tobacco Use: Unknown Alcohol Use: unknown Drug Use: heroin Marital Status: single Housing Status: lives with friends Occupation: employed (by report) Unknown except recent incarceration Laboratory Results Past 24 Hours CXR film 08/31/17: No infiltrate or edema 08/31/17 18:14 Red Blood Count 5.59, Mean Corpuscular Volume 88.9, Mean Corpuscular Hemoglobin 30.8, Mean Corpuscular Hemoglobin Concent 34.6, Mean Platelet Volume 11.3, Neutrophils (%) (Auto) 83.5, Lymphocytes (%) (Auto) 9.4, Monocytes (%) (Auto) 6.6, Eosinophils (%) (Auto) 0.0, Basophils (%) (Auto) 0.1, Neutrophils # (Auto) 16.48, Lymphocytes # (Auto) 1.86, Monocytes # (Auto) 1.31, Eosinophils # (Auto) 0.00, Basophils # (Auto) 0.02 09/01/17 00:48 Red Blood Count 5.50, Mean Corpuscular Volume 88.7, Mean Corpuscular Hemoglobin 29.3, Mean Corpuscular Hemoglobin Concent 33.0, Mean Platelet Volume 11.2, Neutrophils (%) (Auto) 80.2, Lymphocytes (%) (Auto) 10.5, Monocytes (%) (Auto) 8.7, Eosinophils (%) (Auto) 0.0, Basophils (%) (Auto) 0.1, Neutrophils # (Auto) 16.24, Lymphocytes # (Auto) 2.12, Monocytes # (Auto) 1.76, Eosinophils # (Auto) 0.01, Basophils # (Auto) 0.02 09/01/17 04:34 Red Blood Count 4.96, Mean Corpuscular Volume 88.7, Mean Corpuscular Hemoglobin 31.5, Mean Corpuscular Hemoglobin Concent 35.5, Mean Platelet Volume 11.6, Neutrophils (%) (Auto) 80.5, Lymphocytes (%) (Auto) 8.8, Monocytes (%) (Auto) 10.3, Eosinophils (%) (Auto) 0.1, Basophils (%) (Auto) 0.1, Neutrophils # (Auto ) 13.55, Lymphocytes # (Auto) 1.48, Monocytes # (Auto) 1.74, Eosinophils # (Auto ) 0.01, Basophils # (Auto) 0.01 08/31/17 15:22 08/31/17 18:24 09/01/17 00:48 09/01/17 04:34 Test 08/31/17 09:45 08/31/17 10:05 08/31/17 11:24 08/31/17 14:00 Bedside Hemoglobin 17.3 g/dl (14.0-18.0) 17.0 g/dl (14.0-18.0) Bedside Hematocrit 51 % (42-52) 50 % (42-52) Bedside Blood Gas pH (LAB) 7.03 (7.35-7.45) 7.38 (7.35-7.45) Bedside Blood Gas pCO2 (LAB) 75 mmHg (35-46) 47 mmHg (35-46) Bedside Blood Gas pO2 (LAB) 321 mmHg (80-95) 84 mmHg (80-95) Bedside Blood Gas HCO3 (LAB) 20 meq/L (19-24) 27 meq/L (19-24) Bedside Blood Gas Total CO2 22 mEq/l (24-31) 29 mEq/l (24-31) Bedside Blood Gas Base Excess (LAB) -11.0 meq/L (-9-1.8) 2.0 meq/L (-9-1.8) Bedside Blood Gas O2 Saturation 100.0 % (90-95) 96.0 % (90-95) Bedside Sodium 130 mEq/L (135-144) 137 mEq/L (135-144) Bedside Potassium 7.8 mEq/L (3.3-5.0) 6.3 mEq/L (3.3-5.0) Urine Opiates Screen POS (NEG) POS (NEG) Urine Methadone, Qualitative NEG (NEG) NEG (NEG) Urine Barbiturates NEG (NEG) NEG (NEG) Urine Phencyclidine (PCP) Level NEG (NEG) NEG (NEG) Ur Amphetamine/Methamphetamine NEG (NEG) NEG (NEG) MDMA (Ecstasy) Screen NEG (NEG) NEG (NEG) Urine Benzodiazepines Screen NEG (NEG) NEG (NEG) Urine Cocaine Metabolite NEG (NEG) NEG (NEG) Urine Marijuana (THC) POS (NEG) POS (NEG) Urine Color BROWN Urine Appearance CLOUDY (CLEAR) Urine pH (4.5-7.5) Urine Specific [place] 1.019 (1.000-1.030) Urine Protein (NEG) Urine Glucose (UA) (NEG) Urine Ketones (NEG) Urine Occult Blood (NEG) Urine Nitrite (NEG) Urine Bilirubin (NEG) Urine Urobilinogen (NEG) Urine Leukocyte Esterase (NEG) Urine RBC 0-4 /hpf (0-4) Urine WBC 5-10 /hpf (0-5) Urine Epithelial Cells 0-5 /lpf (0-5) Urine Amorphous Sediment PRESENT (NONE PRSENT) Urine Bacteria NEG (NEG) Urine Hyaline Casts 1-5 /lpf (0-5) Urine Granular Casts 0-3 /lpf (0) Test 08/31/17 18:14 08/31/17 18:23 08/31/17 18:24 08/31/17 23:59 White Blood Count 19.75 K/uL (4.8-10.8) Red Blood Count 5.59 M/uL (4.7-6.1) Hemoglobin 17.2 g/dL (14.0-18.0) Hematocrit 49.7 % (42-52) Mean Corpuscular Volume 88.9 fL (80-100) Mean Corpuscular Hemoglobin 30.8 pg (25-34) Mean Corpuscular Hemoglobin Concent 34.6 g/dl (32-36) Platelet Count 197 K/uL (130-400) Mean Platelet Volume 11.3 fL (7.4-10.4) Neutrophils (%) (Auto) 83.5 % Lymphocytes (%) (Auto) 9.4 % Monocytes (%) (Auto) 6.6 % Eosinophils (%) (Auto) 0.0 % Basophils (%) (Auto) 0.1 % Neutrophils # (Auto) 16.48 K/uL (1.4-6.5) Lymphocytes # (Auto) 1.86 K/uL (1.2-3.4) Monocytes # (Auto) 1.31 K/uL (0.11-0.59) Eosinophils # (Auto) 0.00 K/uL (0-0.5) Basophils # (Auto) 0.02 K/uL (0-0.2) RDW Standard Deviation 41.4 fL (36.4-46.3) RDW Coefficient of Variation 12.7 % (11.5-14.5) Immature Granulocyte % (Auto) 0.4 % Immature Granulocyte # (Auto) 0.08 K/uL (0.00-0.02) Blood Gas Sample Site Art Line Bedside Blood Gas pH (LAB) 7.26 (7.35-7.45) Bedside Blood Gas pCO2 (LAB) 48 mmHg (35-46) Bedside Blood Gas pO2 (LAB) 101 mmHg (80-95) Bedside Blood Gas HCO3 (LAB) 21 meq/L (19-24) Bedside Blood Gas Total CO2 23 mEq/l (24-31) Bedside Blood Gas Base Excess (LAB) -6.0 meq/L (-9-1.8) Bedside Blood Gas O2 Saturation 97.0 % (90-95) Iban Test NA Anion Gap 11.0 mmol/L (3-11) Est Creatinine Clear Calc Drug Dose 73.8 ml/min Estimated GFR () 62.7 Estimated GFR (Non- 54.1 BUN/Creatinine Ratio 11.1 (10-20) Lactic Acid Level 3.1 mmol/L (0.4-2.0) Calcium Level 5.3 mg/dl (8.5-10.1) Phosphorus Level 6.6 mg/dl (2.5-4.9) Total Bilirubin 0.9 mg/dl (0.2-1) Aspartate Amino Transf (AST/SGOT) 6384 U/L (15-37) Alanine Aminotransferase (ALT/SGPT) 1507 U/L (12-78) Alkaline Phosphatase 59 U/L (45-117) Troponin I 19.500 ng/ml (0-0.045) Total Protein 4.5 gm/dl (6.4-8.2) Albumin 2.2 gm/dl (3.4-5.0) Globulin 2.3 gm/dl (2.5-4.0) Albumin/Globulin Ratio 1.0 (0.9-2) Hepatitis B Surface Antigen NEG (NEG) Hepatitis B Surface Antibody POS Bedside Glucose 122 mg/dl (70-99) Test 09/01/17 00:48 09/01/17 04:20 09/01/17 04:34 09/01/17 05:32 White Blood Count 20.25 K/uL (4.8-10.8) 16.83 K/uL (4.8-10.8) Red Blood Count 5.50 M/uL (4.7-6.1) 4.96 M/uL (4.7-6.1) Hemoglobin 16.1 g/dL (14.0-18.0) 15.6 g/dL (14.0-18.0) Hematocrit 48.8 % (42-52) 44.0 % (42-52) Mean Corpuscular Volume 88.7 fL (80-100) 88.7 fL (80-100) Mean Corpuscular Hemoglobin 29.3 pg (25-34) 31.5 pg (25-34) Mean Corpuscular Hemoglobin Concent 33.0 g/dl (32-36) 35.5 g/dl (32-36) Platelet Count 168 K/uL (130-400) 117 K/uL (130-400) Mean Platelet Volume 11.2 fL (7.4-10.4) 11.6 fL (7.4-10.4) Neutrophils (%) (Auto) 80.2 % 80.5 % Lymphocytes (%) (Auto) 10.5 % 8.8 % Monocytes (%) (Auto) 8.7 % 10.3 % Eosinophils (%) (Auto) 0.0 % 0.1 % Basophils (%) (Auto) 0.1 % 0.1 % Neutrophils # (Auto) 16.24 K/uL (1.4-6.5) 13.55 K/uL (1.4-6.5) Lymphocytes # (Auto) 2.12 K/uL (1.2-3.4) 1.48 K/uL (1.2-3.4) Monocytes # (Auto) 1.76 K/uL (0.11-0.59) 1.74 K/uL (0.11-0.59) Eosinophils # (Auto) 0.01 K/uL (0-0.5) 0.01 K/uL (0-0.5) Basophils # (Auto) 0.02 K/uL (0-0.2) 0.01 K/uL (0-0.2) RDW Standard Deviation 41.3 fL (36.4-46.3) 40.9 fL (36.4-46.3) RDW Coefficient of Variation 12.7 % (11.5-14.5) 12.7 % (11.5-14.5) Immature Granulocyte % (Auto) 0.5 % 0.2 % Immature Granulocyte # (Auto) 0.10 K/uL (0.00-0.02) 0.04 K/uL (0.00-0.02) Anion Gap 9.0 mmol/L (3-11) 9.0 mmol/L (3-11) Est Creatinine Clear Calc Drug Dose 57.9 ml/min 51.2 ml/min Estimated GFR () 43.5 37.5 Estimated GFR (Non- 37.5 32.3 BUN/Creatinine Ratio 10.5 (10-20) 9.9 (10-20) Calcium Level < 5.0 mg/dl (8.5-10.1) < 5.0 mg/dl (8.5-10.1) Magnesium Level 2.3 mg/dl (1.8-2.4) 2.3 mg/dl (1.8-2.4) Total Bilirubin 0.7 mg/dl (0.2-1) 0.7 mg/dl (0.2-1) Direct Bilirubin 0.3 mg/dl (0-0.2) 0.3 mg/dl (0-0.2) Aspartate Amino Transf (AST/SGOT) 7086 U/L (15-37) 7308 U/L (15-37) Alanine Aminotransferase (ALT/SGPT) 1727 U/L (12-78) 1802 U/L (12-78) Alkaline Phosphatase 50 U/L (45-117) 51 U/L (45-117) Total Protein 3.6 gm/dl (6.4-8.2) 3.5 gm/dl (6.4-8.2) Albumin 1.7 gm/dl (3.4-5.0) 1.5 gm/dl (3.4-5.0) Bedside Glucose 109 mg/dl (70-99) Prothrombin Time 18.0 SECONDS (9.0-12.0) Prothromb Time International Ratio 1.6 (0.9-1.1) Activated Partial Thromboplast Time 42.9 SECONDS (21.0-31.0) Partial Thromboplastin Ratio 1.7 Phosphorus Level 6.8 mg/dl (2.5-4.9) Blood Gas Sample Site Art Line Bedside Blood Gas pH (LAB) 7.33 (7.35-7.45) Bedside Blood Gas pCO2 (LAB) 41 mmHg (35-46) Bedside Blood Gas pO2 (LAB) 97 mmHg (80-95) Bedside Blood Gas HCO3 (LAB) 21 meq/L (19-24) Bedside Blood Gas Total CO2 22 mEq/l (24-31) Bedside Blood Gas Base Excess (LAB) -4.0 meq/L (-9-1.8) Bedside Blood Gas O2 Saturation 96.0 % (90-95) Iban Test NA Oxygen Delivery Device Ventilator Bedside Oxygen Rate (breaths/min) 24 Blood Gas Minute Ventilation 12.6 Bedside FiO2 21 % Blood Gas Tidal Volume 550 Blood Gas PEEP 5 Test 09/01/17 07:58 09/01/17 08:10 09/01/17 08:33 Blood Gas Sample Site Art Line Bedside Blood Gas pH (LAB) 7.39 (7.35-7.45) Bedside Blood Gas pCO2 (LAB) 36 mmHg (35-46) Bedside Blood Gas pO2 (LAB) 90 mmHg (80-95) Bedside Blood Gas HCO3 (LAB) 22 meq/L (19-24) Bedside Blood Gas Total CO2 23 mEq/l (24-31) Bedside Blood Gas Base Excess (LAB) -3.0 meq/L (-9-1.8) Bedside Blood Gas O2 Saturation 97.0 % (90-95) Iban Test NA Oxygen Delivery Device Ventilator Bedside Oxygen Rate (breaths/min) 24 Blood Gas Minute Ventilation 12.8 Bedside FiO2 21 % Blood Gas Tidal Volume 550 Blood Gas PEEP 5 Ionized Calcium 0.65 mmol/l (1.12-1.32) Uric Acid 8.6 mg/dl (2.6-7.2) Date/Time Source Procedure Growth Status 08/31/17 13:20 Nasal MRSA DNA Surveillance Screen - Final Specimen Negative for MRSA by DNA Probe Complete Allergies Coded Allergies: No Known Allergies (Unverified , 08/31/17) Medications Current Inpatient Medications Medications (Trade) Dose Ordered Sig/Ignacio Route Start Time Stop Time Status Last Admin Dose Admin Norepinephrine Bitartrate 8 mg/ Dextrose 508 ml @ 0 mls/hr Q0M PRN IV 08/31/17 12:30 09/30/17 12:29 09/01/17 03:26 101 MLS/HR Pantoprazole Sodium 40 mg/ Syringe 10 ml @ 5 mls/min DAILY@1100 IV 09/01/17 11:00 10/01/17 10:59 Ketamine HCl 500 mg/Sodium Chloride 500 ml @ 0 mls/hr Q0M PRN IV 08/31/17 15:30 09/01/17 11:00 08/31/17 18:23 6 MLS/HR Midazolam HCl 250 ml @ 0 mls/hr Q0M PRN IV 08/31/17 18:30 09/30/17 18:29 08/31/17 23:33 4 MLS/HR Lorazepam (Ativan Inj) 2 mg Q4H PRN IV 08/31/17 18:30 09/30/17 18:29 Fentanyl Citrate (Fentanyl Inj) 50 mcg Q1H PRN IV 09/01/17 01:30 09/15/17 01:29 09/01/17 02:00 50 MCG Vancomycin HCl (Consult) 1 ea UD PRN N/A 09/01/17 06:00 10/01/17 05:59 Fentanyl Citrate 250 ml @ 0 mls/hr Q0M PRN IV 09/01/17 08:45 09/15/17 08:44 Heparin Sodium (Porcine) (Heparin Sq 5000 Unit/0.5ml) 5,000 unit Q12 SC 09/01/17 09:30 10/01/17 09:29 Dextrose/Sodium Chloride 1,000 ml @ 150 mls/hr Q6H40M IV 09/01/17 13:00 10/01/17 12:59 Heparin Sodium (Porcine) (No Heparin In Dialysis) 1 ea TODAY@0900 N/A 09/01/17 09:00 09/01/17 14:00 Impression (1) EDGAR (acute kidney injury) (2) Rhabdomyolysis (3) Compartment syndrome (4) Polysubstance overdose (5) Heroin abuse (6) Acute respiratory failure Mr. Ponce was admitted to the ICU following a drug overdose. Evaluation has revealed compartment syndrome, rhabdomyolysis, EDGAR, hyperkalemia and wide complex tachycardia. HD has been requested to provide emergency hemodialysis to correct electrolyte balance prior to surgery and ongoing as support until kidney function recovers Recommendations Case discussed w/ ICU team this am. Patient is nonoliguric but remains acidemic and hyperkalemic. Will provide heparin free HD today to help correct electrolyte balance and pH. Will not order UF as patient's lungs are clear on CXR and he is being easily oxygenated on ventilator. Although he is 5 L volume positive, much of the fluid has 3rd spaced into muscle tissue and patient remains pressor dependent. Will reassess patient again in am to determine ongoing need for dialysis support 45 minutes critical care time provided to the patient today. This was necessary to review his record, coordinate care w/ ICU team and coordinate HD. Over 50% of time provided was spent on coordination of care.
[2017-09-01] MEDS: MIDAZOLAM 125MG/250ML D5W 250 ML IV PRN (10:18)
--- NOTE | 2017-09-01 10:30 | Anesthesiology Progress Note ---
Anesthesia Post Op Note Date & Time Sep 01, 2017 at 10:25 Vital Signs Pain Intensity: 0 Vital Signs Past 12 Hours Date Time Temp Pulse Resp B/P (MAP) Pulse Ox O2 Delivery O2 Flow Rate FiO2 09/01/17 08:00 30 09/01/17 08:00 100 Mechanical Ventilator 30 09/01/17 08:00 97 24 108/64 (79) 100 09/01/17 07:35 21 09/01/17 06:05 94 24 131/75 (93) 100 Mechanical Ventilator 09/01/17 05:00 21 09/01/17 04:00 100 Mechanical Ventilator 09/01/17 04:00 21 09/01/17 03:00 95 25 119/61 (80) 100 Mechanical Ventilator 09/01/17 02:30 98 24 90/51 (64) 100 09/01/17 02:17 21 09/01/17 02:00 98 26 113/75 (88) 100 Mechanical Ventilator 09/01/17 01:30 97 26 112/63 (79) 100 09/01/17 01:00 98 25 117/66 (83) 99 Mechanical Ventilator 09/01/17 00:30 99 25 96/53 (67) 100 09/01/17 00:00 21 09/01/17 00:00 36.8 99 25 109/79 (89) 100 09/01/17 00:00 100 Mechanical Ventilator 08/31/17 23:02 21 Notes Mental Status: see Notes (Pt. is intubated, sedated, and on Levophed gtt at 0.05 mck/kg/min. VSS. when assessed at 0730. Spoke with Dr. Chu, no apparent anesthetic complications.) Airway Patency, RR, SpO2: stable & adequate BP & HR: stable & adequate Hydration State: stable & adequate Anesthetic Complications: no major complications apparent
[2017-09-01] MEDS ORDERED: PANTOprazole INJ 40 MG in SYRINGE 0 ML IV SCH (11:00)
[2017-09-01] MEDS ORDERED: MIDAZOLAM HCL 1 MG/ML 2ML VIAL ONE (11:01)
[2017-09-01] MEDS ORDERED: FENTANYL CITRATE INJ 50 MCG/1 ML 2 ML VIAL ONE (11:01)
[2017-09-01] MEDS ORDERED: CISATRACURIUM BESYLATE IV SOLN 2 MG/ML 10 ML VIAL ONE (11:25)
[2017-09-01] MEDS ORDERED: CALCIUM CHLORIDE 10% 10 ML SYR ONE ×3 (11:36→12:38)
[2017-09-01] MEDS ORDERED: KETAMINE HCL INJ 50 MG/ML 10 ML VIAL ONE (11:40)
--- NOTE | 2017-09-01 12:04 | Dialysis Progress Note ---
Hemodialysis Note Date of Service Sep 01, 2017. Chief Complaint Rhabdomyolysis resulting in EDGAR and need for HD Vital Signs Last 8 Hrs Date Time Temp Pulse Resp B/P (MAP) Pulse Ox O2 Delivery O2 Flow Rate FiO2 09/01/17 11:30 102 110/61 09/01/17 11:15 100 101/56 09/01/17 11:00 99 106/60 09/01/17 11:00 36.8 97 102/58 (73) 09/01/17 10:50 30 09/01/17 10:45 96 123/61 09/01/17 10:30 96 106/53 09/01/17 10:15 97 107/60 09/01/17 10:00 98 120/68 09/01/17 10:00 98 24 108/56 (73) 100 09/01/17 09:45 96 104/57 09/01/17 08:00 30 09/01/17 08:00 100 Mechanical Ventilator 30 09/01/17 08:00 97 24 108/64 (79) 100 09/01/17 07:35 21 09/01/17 06:05 94 24 131/75 (93) 100 Mechanical Ventilator 21 09/01/17 05:00 21 Last Recorded Weight Weight (Kilograms): 102.600 Family History Unknown Social History Smokeless Tobacco Use: Unknown Alcohol Use: unknown Drug Use: heroin Marital Status: single Housing Status: lives with friends Occupation: employed (by report) Unknown except recent incarceration Laboratory Results Past 24 Hours 08/31/17 18:14 Red Blood Count 5.59, Mean Corpuscular Volume 88.9, Mean Corpuscular Hemoglobin 30.8, Mean Corpuscular Hemoglobin Concent 34.6, Mean Platelet Volume 11.3, Neutrophils (%) (Auto) 83.5, Lymphocytes (%) (Auto) 9.4, Monocytes (%) (Auto) 6.6, Eosinophils (%) (Auto) 0.0, Basophils (%) (Auto) 0.1, Neutrophils # (Auto) 16.48, Lymphocytes # (Auto) 1.86, Monocytes # (Auto) 1.31, Eosinophils # (Auto) 0.00, Basophils # (Auto) 0.02 09/01/17 00:48 Red Blood Count 5.50, Mean Corpuscular Volume 88.7, Mean Corpuscular Hemoglobin 29.3, Mean Corpuscular Hemoglobin Concent 33.0, Mean Platelet Volume 11.2, Neutrophils (%) (Auto) 80.2, Lymphocytes (%) (Auto) 10.5, Monocytes (%) (Auto) 8.7, Eosinophils (%) (Auto) 0.0, Basophils (%) (Auto) 0.1, Neutrophils # (Auto) 16.24, Lymphocytes # (Auto) 2.12, Monocytes # (Auto) 1.76, Eosinophils # (Auto) 0.01, Basophils # (Auto) 0.02 09/01/17 04:34 Red Blood Count 4.96, Mean Corpuscular Volume 88.7, Mean Corpuscular Hemoglobin 31.5, Mean Corpuscular Hemoglobin Concent 35.5, Mean Platelet Volume 11.6, Neutrophils (%) (Auto) 80.5, Lymphocytes (%) (Auto) 8.8, Monocytes (%) (Auto) 10.3, Eosinophils (%) (Auto) 0.1, Basophils (%) (Auto) 0.1, Neutrophils # (Auto ) 13.55, Lymphocytes # (Auto) 1.48, Monocytes # (Auto) 1.74, Eosinophils # (Auto ) 0.01, Basophils # (Auto) 0.01 08/31/17 15:22 08/31/17 18:24 09/01/17 00:48 09/01/17 04:34 09/01/17 11:32 Test 08/31/17 14:00 08/31/17 15:36 08/31/17 18:14 08/31/17 18:23 Urine Color BROWN Urine Appearance CLOUDY (CLEAR) Urine pH (4.5-7.5) Urine Specific [place] 1.019 (1.000-1.030) Urine Protein (NEG) Urine Glucose (UA) (NEG) Urine Ketones (NEG) Urine Occult Blood (NEG) Urine Nitrite (NEG) Urine Bilirubin (NEG) Urine Urobilinogen (NEG) Urine Leukocyte Esterase (NEG) Urine RBC 0-4 /hpf (0-4) Urine WBC 5-10 /hpf (0-5) Urine Epithelial Cells 0-5 /lpf (0-5) Urine Amorphous Sediment PRESENT (NONE PRSENT) Urine Bacteria NEG (NEG) Urine Hyaline Casts 1-5 /lpf (0-5) Urine Granular Casts 0-3 /lpf (0) Urine Opiates Screen POS (NEG) Urine Methadone, Qualitative NEG (NEG) Urine Barbiturates NEG (NEG) Urine Phencyclidine (PCP) Level NEG (NEG) Ur Amphetamine/Methamphetamine NEG (NEG) MDMA (Ecstasy) Screen NEG (NEG) Urine Benzodiazepines Screen NEG (NEG) Urine Cocaine Metabolite NEG (NEG) Urine Marijuana (THC) POS (NEG) Bedside Glucose (other) 155 mg/dl (70-99) White Blood Count 19.75 K/uL (4.8-10.8) Red Blood Count 5.59 M/uL (4.7-6.1) Hemoglobin 17.2 g/dL (14.0-18.0) Hematocrit 49.7 % (42-52) Mean Corpuscular Volume 88.9 fL (80-100) Mean Corpuscular Hemoglobin 30.8 pg (25-34) Mean Corpuscular Hemoglobin Concent 34.6 g/dl (32-36) Platelet Count 197 K/uL (130-400) Mean Platelet Volume 11.3 fL (7.4-10.4) Neutrophils (%) (Auto) 83.5 % Lymphocytes (%) (Auto) 9.4 % Monocytes (%) (Auto) 6.6 % Eosinophils (%) (Auto) 0.0 % Basophils (%) (Auto) 0.1 % Neutrophils # (Auto) 16.48 K/uL (1.4-6.5) Lymphocytes # (Auto) 1.86 K/uL (1.2-3.4) Monocytes # (Auto) 1.31 K/uL (0.11-0.59) Eosinophils # (Auto) 0.00 K/uL (0-0.5) Basophils # (Auto) 0.02 K/uL (0-0.2) RDW Standard Deviation 41.4 fL (36.4-46.3) RDW Coefficient of Variation 12.7 % (11.5-14.5) Immature Granulocyte % (Auto) 0.4 % Immature Granulocyte # (Auto) 0.08 K/uL (0.00-0.02) Blood Gas Sample Site Art Line Bedside Blood Gas pH (LAB) 7.26 (7.35-7.45) Bedside Blood Gas pCO2 (LAB) 48 mmHg (35-46) Bedside Blood Gas pO2 (LAB) 101 mmHg (80-95) Bedside Blood Gas HCO3 (LAB) 21 meq/L (19-24) Bedside Blood Gas Total CO2 23 mEq/l (24-31) Bedside Blood Gas Base Excess (LAB) -6.0 meq/L (-9-1.8) Bedside Blood Gas O2 Saturation 97.0 % (90-95) Iban Test NA Test 08/31/17 18:24 08/31/17 23:59 09/01/17 00:48 09/01/17 04:20 Anion Gap 11.0 mmol/L (3-11) 9.0 mmol/L (3-11) Est Creatinine Clear Calc Drug Dose 73.8 ml/min 57.9 ml/min Estimated GFR () 62.7 43.5 Estimated GFR (Non- 54.1 37.5 BUN/Creatinine Ratio 11.1 (10-20) 10.5 (10-20) Lactic Acid Level 3.1 mmol/L (0.4-2.0) Calcium Level 5.3 mg/dl (8.5-10.1) < 5.0 mg/dl (8.5-10.1) Phosphorus Level 6.6 mg/dl (2.5-4.9) Total Bilirubin 0.9 mg/dl (0.2-1) 0.7 mg/dl (0.2-1) Aspartate Amino Transf (AST/SGOT) 6384 U/L (15-37) 7086 U/L (15-37) Alanine Aminotransferase (ALT/SGPT) 1507 U/L (12-78) 1727 U/L (12-78) Alkaline Phosphatase 59 U/L (45-117) 50 U/L (45-117) Troponin I 19.500 ng/ml (0-0.045) Total Protein 4.5 gm/dl (6.4-8.2) 3.6 gm/dl (6.4-8.2) Albumin 2.2 gm/dl (3.4-5.0) 1.7 gm/dl (3.4-5.0) Globulin 2.3 gm/dl (2.5-4.0) Albumin/Globulin Ratio 1.0 (0.9-2) Hepatitis B Surface Antigen NEG (NEG) Hepatitis B Surface Antibody POS Bedside Glucose 122 mg/dl (70-99) 109 mg/dl (70-99) White Blood Count 20.25 K/uL (4.8-10.8) Red Blood Count 5.50 M/uL (4.7-6.1) Hemoglobin 16.1 g/dL (14.0-18.0) Hematocrit 48.8 % (42-52) Mean Corpuscular Volume 88.7 fL (80-100) Mean Corpuscular Hemoglobin 29.3 pg (25-34) Mean Corpuscular Hemoglobin Concent 33.0 g/dl (32-36) Platelet Count 168 K/uL (130-400) Mean Platelet Volume 11.2 fL (7.4-10.4) Neutrophils (%) (Auto) 80.2 % Lymphocytes (%) (Auto) 10.5 % Monocytes (%) (Auto) 8.7 % Eosinophils (%) (Auto) 0.0 % Basophils (%) (Auto) 0.1 % Neutrophils # (Auto) 16.24 K/uL (1.4-6.5) Lymphocytes # (Auto) 2.12 K/uL (1.2-3.4) Monocytes # (Auto) 1.76 K/uL (0.11-0.59) Eosinophils # (Auto) 0.01 K/uL (0-0.5) Basophils # (Auto) 0.02 K/uL (0-0.2) RDW Standard Deviation 41.3 fL (36.4-46.3) RDW Coefficient of Variation 12.7 % (11.5-14.5) Immature Granulocyte % (Auto) 0.5 % Immature Granulocyte # (Auto) 0.10 K/uL (0.00-0.02) Magnesium Level 2.3 mg/dl (1.8-2.4) Direct Bilirubin 0.3 mg/dl (0-0.2) Test 09/01/17 04:34 09/01/17 05:32 09/01/17 07:58 09/01/17 08:10 White Blood Count 16.83 K/uL (4.8-10.8) Red Blood Count 4.96 M/uL (4.7-6.1) Hemoglobin 15.6 g/dL (14.0-18.0) Hematocrit 44.0 % (42-52) Mean Corpuscular Volume 88.7 fL (80-100) Mean Corpuscular Hemoglobin 31.5 pg (25-34) Mean Corpuscular Hemoglobin Concent 35.5 g/dl (32-36) Platelet Count 117 K/uL (130-400) Mean Platelet Volume 11.6 fL (7.4-10.4) Neutrophils (%) (Auto) 80.5 % Lymphocytes (%) (Auto) 8.8 % Monocytes (%) (Auto) 10.3 % Eosinophils (%) (Auto) 0.1 % Basophils (%) (Auto) 0.1 % Neutrophils # (Auto) 13.55 K/uL (1.4-6.5) Lymphocytes # (Auto) 1.48 K/uL (1.2-3.4) Monocytes # (Auto) 1.74 K/uL (0.11-0.59) Eosinophils # (Auto) 0.01 K/uL (0-0.5) Basophils # (Auto) 0.01 K/uL (0-0.2) RDW Standard Deviation 40.9 fL (36.4-46.3) RDW Coefficient of Variation 12.7 % (11.5-14.5) Immature Granulocyte % (Auto) 0.2 % Immature Granulocyte # (Auto) 0.04 K/uL (0.00-0.02) Prothrombin Time 18.0 SECONDS (9.0-12.0) Prothromb Time International Ratio 1.6 (0.9-1.1) Activated Partial Thromboplast Time 42.9 SECONDS (21.0-31.0) Partial Thromboplastin Ratio 1.7 Anion Gap 9.0 mmol/L (3-11) Est Creatinine Clear Calc Drug Dose 51.2 ml/min Estimated GFR () 37.5 Estimated GFR (Non- 32.3 BUN/Creatinine Ratio 9.9 (10-20) Calcium Level < 5.0 mg/dl (8.5-10.1) Phosphorus Level 6.8 mg/dl (2.5-4.9) Magnesium Level 2.3 mg/dl (1.8-2.4) Total Bilirubin 0.7 mg/dl (0.2-1) Direct Bilirubin 0.3 mg/dl (0-0.2) Aspartate Amino Transf (AST/SGOT) 7308 U/L (15-37) Alanine Aminotransferase (ALT/SGPT) 1802 U/L (12-78) Alkaline Phosphatase 51 U/L (45-117) Total Creatine Kinase > 202370 U/L (39-308) Total Protein 3.5 gm/dl (6.4-8.2) Albumin 1.5 gm/dl (3.4-5.0) Blood Gas Sample Site Art Line Art Line Bedside Blood Gas pH (LAB) 7.33 (7.35-7.45) 7.39 (7.35-7.45) Bedside Blood Gas pCO2 (LAB) 41 mmHg (35-46) 36 mmHg (35-46) Bedside Blood Gas pO2 (LAB) 97 mmHg (80-95) 90 mmHg (80-95) Bedside Blood Gas HCO3 (LAB) 21 meq/L (19-24) 22 meq/L (19-24) Bedside Blood Gas Total CO2 22 mEq/l (24-31) 23 mEq/l (24-31) Bedside Blood Gas Base Excess (LAB) -4.0 meq/L (-9-1.8) -3.0 meq/L (-9-1.8) Bedside Blood Gas O2 Saturation 96.0 % (90-95) 97.0 % (90-95) Iabn Test NA NA Oxygen Delivery Device Ventilator Ventilator Bedside Oxygen Rate (breaths/min) 24 24 Blood Gas Minute Ventilation 12.6 12.8 Bedside FiO2 21 % 21 % Blood Gas Tidal Volume 550 550 Blood Gas PEEP 5 5 Ionized Calcium 0.65 mmol/l (1.12-1.32) Test 09/01/17 08:33 09/01/17 11:32 Uric Acid 8.6 mg/dl (2.6-7.2) Date/Time Source Procedure Growth Status 08/31/17 13:20 Nasal MRSA DNA Surveillance Screen - Final Specimen Negative for MRSA by DNA Probe Complete Allergies Coded Allergies: No Known Allergies (Unverified , 08/31/17) Medications Current Inpatient Medications Medications (Trade) Dose Ordered Sig/Ignacio Route Start Time Stop Time Status Last Admin Dose Admin Norepinephrine Bitartrate 8 mg/ Dextrose 508 ml @ 0 mls/hr Q0M PRN IV 08/31/17 12:30 09/30/17 12:29 09/01/17 03:26 101 MLS/HR Pantoprazole Sodium 40 mg/ Syringe 10 ml @ 5 mls/min DAILY@1100 IV 09/01/17 11:00 10/01/17 10:59 09/01/17 10:20 5 MLS/MIN Midazolam HCl 250 ml @ 0 mls/hr Q0M PRN IV 08/31/17 18:30 09/30/17 18:29 09/01/17 10:18 20 MLS/HR Lorazepam (Ativan Inj) 2 mg Q4H PRN IV 08/31/17 18:30 09/30/17 18:29 Fentanyl Citrate (Fentanyl Inj) 50 mcg Q1H PRN IV 09/01/17 01:30 09/15/17 01:29 09/01/17 02:00 50 MCG Vancomycin HCl (Consult) 1 ea UD PRN N/A 09/01/17 06:00 10/01/17 05:59 Fentanyl Citrate 250 ml @ 0 mls/hr Q0M PRN IV 09/01/17 08:45 09/15/17 08:44 09/01/17 10:18 20 MLS/HR Heparin Sodium (Porcine) (Heparin Sq 5000 Unit/0.5ml) 5,000 unit Q12 SC 09/01/17 09:30 10/01/17 09:29 09/01/17 10:19 5,000 UNIT Dextrose/Sodium Chloride 1,000 ml @ 150 mls/hr Q6H40M IV 09/01/17 13:00 10/01/17 12:59 09/01/17 10:21 150 MLS/HR Heparin Sodium (Porcine) (No Heparin In Dialysis) 1 ea TODAY@0900 N/A 09/01/17 09:00 09/01/17 14:00 09/01/17 10:19 1 EA Enteral Nutritional Formula (Novasource Renal) METHOD OF ADMINISTRATION ... QID OG 09/01/17 09:00 10/01/17 08:59 Impression (1) EDGAR (acute kidney injury) (2) Rhabdomyolysis (3) Compartment syndrome (4) Polysubstance overdose (5) Heroin abuse (6) Acute respiratory failure Mr. Ponce was admitted to the ICU following a drug overdose. Evaluation has revealed compartment syndrome, rhabdomyolysis, EDGAR, hyperkalemia and wide complex tachycardia. HD has been requested to provide emergency hemodialysis to correct electrolyte balance prior to surgery and ongoing as support until kidney function recovers Recommendations Patient was seen during HD this morning. Vascular surgery was present at the time of my evaluation. Patient has developed compartment syndrome of the arms. He has completed 2 hours dialysis. Will interrupt treatment to allow fasciotomy. Will resume heparin free HD for 2 hours when patient returns from surgery. Discussed with HD staff research scientist.
[2017-09-01] MEDS ORDERED: NURSING VERBAL MED ORDER STA (12:12)
[2017-09-01] MEDS ORDERED: ALBUTEROL 0.083% NEBU SOLN 3 ML VIAL INH STA ×2 (12:14→15:52)
[2017-09-01] MEDS ORDERED: INSULIN HUMAN REGULAR PER UNIT 5 UNITS in SYRINGE 4.95 ML IV SCH (12:30)
[2017-09-01] MEDS ORDERED: DEXTROSE 50% 50 ML SYR IV ONE ×3 (12:30→16:15)
[2017-09-01] MEDS ORDERED: D5W AND NSS 1,000 ML IV SCH (13:00)
[2017-09-01] MEDS ORDERED: PHENYLEPHRINE 100MCG/ML 5ML SYR ONE (13:00)
[2017-09-01] MEDS ORDERED: PHENYLEPHRINE HCL INJ 10 MG/ML VIAL ONE (13:00)
--- NOTE | 2017-09-01 13:26 | Pharmacy Progress Note ---
Pharmacy Antibiotic Prog Note Date of Service Sep 01, 2017. Subjective The patient is currently receiving vancomycin prn levels The patient is currently on day # 1 of vancomycin IV therapy. Objective Height (Feet): 5 Height (Inches): 10.00 Weight (Kilograms): 102.600 Lab Results (24hrs): Test 08/31/17 14:00 08/31/17 15:36 08/31/17 18:24 08/31/17 23:59 Urine Color BROWN Urine Appearance CLOUDY (CLEAR) Urine pH (4.5-7.5) Urine Specific [place] 1.019 (1.000-1.030) Urine Protein (NEG) Urine Glucose (UA) (NEG) Urine Ketones (NEG) Urine Occult Blood (NEG) Urine Nitrite (NEG) Urine Bilirubin (NEG) Urine Urobilinogen (NEG) Urine Leukocyte Esterase (NEG) Urine RBC 0-4 /hpf (0-4) Urine WBC 5-10 /hpf (0-5) Urine Epithelial Cells 0-5 /lpf (0-5) Urine Amorphous Sediment PRESENT (NONE PRSENT) Urine Bacteria NEG (NEG) Urine Hyaline Casts 1-5 /lpf (0-5) Urine Granular Casts 0-3 /lpf (0) Urine Opiates Screen POS (NEG) Urine Methadone, Qualitative NEG (NEG) Urine Barbiturates NEG (NEG) Urine Phencyclidine (PCP) Level NEG (NEG) Ur Amphetamine/Methamphetamine NEG (NEG) MDMA (Ecstasy) Screen NEG (NEG) Urine Benzodiazepines Screen NEG (NEG) Urine Cocaine Metabolite NEG (NEG) Urine Marijuana (THC) POS (NEG) Bedside Glucose (other) 155 mg/dl (70-99) Lactic Acid Level 3.1 mmol/L (0.4-2.0) Phosphorus Level 6.6 mg/dl (2.5-4.9) Troponin I 19.500 ng/ml (0-0.045) Globulin 2.3 gm/dl (2.5-4.0) Albumin/Globulin Ratio 1.0 (0.9-2) Hepatitis B Surface Antigen NEG (NEG) Hepatitis B Surface Antibody POS Bedside Glucose 122 mg/dl (70-99) Test 09/01/17 00:48 09/01/17 04:20 09/01/17 04:34 09/01/17 05:32 White Blood Count 20.25 K/uL (4.8-10.8) 16.83 K/uL (4.8-10.8) Red Blood Count 5.50 M/uL (4.7-6.1) 4.96 M/uL (4.7-6.1) Hemoglobin 16.1 g/dL (14.0-18.0) 15.6 g/dL (14.0-18.0) Hematocrit 48.8 % (42-52) 44.0 % (42-52) Mean Corpuscular Volume 88.7 fL (80-100) 88.7 fL (80-100) Mean Corpuscular Hemoglobin 29.3 pg (25-34) 31.5 pg (25-34) Mean Corpuscular Hemoglobin Concent 33.0 g/dl (32-36) 35.5 g/dl (32-36) Platelet Count 168 K/uL (130-400) 117 K/uL (130-400) Mean Platelet Volume 11.2 fL (7.4-10.4) 11.6 fL (7.4-10.4) Neutrophils (%) (Auto) 80.2 % 80.5 % Lymphocytes (%) (Auto) 10.5 % 8.8 % Monocytes (%) (Auto) 8.7 % 10.3 % Eosinophils (%) (Auto) 0.0 % 0.1 % Basophils (%) (Auto) 0.1 % 0.1 % Neutrophils # (Auto) 16.24 K/uL (1.4-6.5) 13.55 K/uL (1.4-6.5) Lymphocytes # (Auto) 2.12 K/uL (1.2-3.4) 1.48 K/uL (1.2-3.4) Monocytes # (Auto) 1.76 K/uL (0.11-0.59) 1.74 K/uL (0.11-0.59) Eosinophils # (Auto) 0.01 K/uL (0-0.5) 0.01 K/uL (0-0.5) Basophils # (Auto) 0.02 K/uL (0-0.2) 0.01 K/uL (0-0.2) RDW Standard Deviation 41.3 fL (36.4-46.3) 40.9 fL (36.4-46.3) RDW Coefficient of Variation 12.7 % (11.5-14.5) 12.7 % (11.5-14.5) Immature Granulocyte % (Auto) 0.5 % 0.2 % Immature Granulocyte # (Auto) 0.10 K/uL (0.00-0.02) 0.04 K/uL (0.00-0.02) Sodium Level 137 mmol/L (136-145) 136 mmol/L (136-145) Chloride Level 107 mmol/L (98-107) 107 mmol/L (98-107) Carbon Dioxide Level 19 mmol/L (21-32) 20 mmol/L (21-32) Anion Gap 9.0 mmol/L (3-11) 9.0 mmol/L (3-11) Blood Urea Nitrogen 24 mg/dl (7-18) 26 mg/dl (7-18) Creatinine 2.30 mg/dl (0.60-1.40) 2.60 mg/dl (0.60-1.40) Est Creatinine Clear Calc Drug Dose 57.9 ml/min 51.2 ml/min Estimated GFR () 43.5 37.5 Estimated GFR (Non- 37.5 32.3 BUN/Creatinine Ratio 10.5 (10-20) 9.9 (10-20) Random Glucose 159 mg/dl (70-99) 115 mg/dl (70-99) Magnesium Level 2.3 mg/dl (1.8-2.4) 2.3 mg/dl (1.8-2.4) Total Bilirubin 0.7 mg/dl (0.2-1) 0.7 mg/dl (0.2-1) Direct Bilirubin 0.3 mg/dl (0-0.2) 0.3 mg/dl (0-0.2) Aspartate Amino Transf (AST/SGOT) 7086 U/L (15-37) 7308 U/L (15-37) Alanine Aminotransferase (ALT/SGPT) 1727 U/L (12-78) 1802 U/L (12-78) Alkaline Phosphatase 50 U/L (45-117) 51 U/L (45-117) Total Protein 3.6 gm/dl (6.4-8.2) 3.5 gm/dl (6.4-8.2) Albumin 1.7 gm/dl (3.4-5.0) 1.5 gm/dl (3.4-5.0) Bedside Glucose 109 mg/dl (70-99) Prothrombin Time 18.0 SECONDS (9.0-12.0) Prothromb Time International Ratio 1.6 (0.9-1.1) Activated Partial Thromboplast Time 42.9 SECONDS (21.0-31.0) Partial Thromboplastin Ratio 1.7 Potassium Level 6.4 mmol/L (3.5-5.1) Calcium Level < 5.0 mg/dl (8.5-10.1) Phosphorus Level 6.8 mg/dl (2.5-4.9) Total Creatine Kinase > 334931 U/L (39-308) Blood Gas Sample Site Art Line Bedside Blood Gas pH (LAB) 7.33 (7.35-7.45) Bedside Blood Gas pCO2 (LAB) 41 mmHg (35-46) Bedside Blood Gas pO2 (LAB) 97 mmHg (80-95) Bedside Blood Gas HCO3 (LAB) 21 meq/L (19-24) Bedside Blood Gas Total CO2 22 mEq/l (24-31) Bedside Blood Gas Base Excess (LAB) -4.0 meq/L (-9-1.8) Bedside Blood Gas O2 Saturation 96.0 % (90-95) Iban Test NA Oxygen Delivery Device Ventilator Bedside Oxygen Rate (breaths/min) 24 Blood Gas Minute Ventilation 12.6 Bedside FiO2 21 % Blood Gas Tidal Volume 550 Blood Gas PEEP 5 Test 09/01/17 07:58 09/01/17 08:10 09/01/17 08:33 09/01/17 11:32 Blood Gas Sample Site Art Line Bedside Blood Gas pH (LAB) 7.39 (7.35-7.45) Bedside Blood Gas pCO2 (LAB) 36 mmHg (35-46) Bedside Blood Gas pO2 (LAB) 90 mmHg (80-95) Bedside Blood Gas HCO3 (LAB) 22 meq/L (19-24) Bedside Blood Gas Total CO2 23 mEq/l (24-31) Bedside Blood Gas Base Excess (LAB) -3.0 meq/L (-9-1.8) Bedside Blood Gas O2 Saturation 97.0 % (90-95) Iban Test NA Oxygen Delivery Device Ventilator Bedside Oxygen Rate (breaths/min) 24 Blood Gas Minute Ventilation 12.8 Bedside FiO2 21 % Blood Gas Tidal Volume 550 Blood Gas PEEP 5 Ionized Calcium 0.65 mmol/l (1.12-1.32) Uric Acid 8.6 mg/dl (2.6-7.2) Potassium Level 6.0 mmol/L (3.5-5.1) Calcium Level 5.4 mg/dl (8.5-10.1) Assessment & Plan Assessment * 26 yo M found unresponsive 2nd likely drug overdose (heroin vs. xanax vs. other), with severe rhabdomyolysis and compartment syndrome s/p surgical intervention 08/31 and 09/01. Also with 1 of 2 blood cultures with Gram positive cocci. * ARF requiring daily HD, although only able to complete 2.5 hr today before taken to OR emergently for further intervention for worsening compartment syndrome * Sequence of vancomycin doses, levels, and HD * 09/01 0600: Vancomycin 2500 mg (25 mg/kg) IV x1 * 09/01 1206: Completed 2.5 hr HD * Because patient received a higher loading dose and HD was not a full 3.5-4 hr , do not anticipate level will be subtherapeutic post-HD. However, patient is not chronic HD and therefore may clear some vancomycin as he is producing urine and do not want level to become subtherapeutic for bacteremic patient * Will therefore order a post-HD level at 6 hr after HD (levels obtained prior to this time may be falsely low as vancomycin in tissues has not had adequate time to re-distribute to blood) Plan * Vancomycin random level @ 1800 today * If transferred before level obtained, please recommend level to be checked no sooner than 1800 today Pharmacy will continue to follow and will adjust dose/frequency as necessary. Thank you
[2017-09-01 13:48] LABS: ISTAT CREATININE 2.8 mg/dl (0.6-1.3); ISTAT HEMOGLOBIN 11.6 g/dl (14.0-18.0); ISTAT IONIZED CALCIUM 0.75 mmol/l (1.12-1.32)
[2017-09-01 13:48] LABS: ISTAT CREATININE 1.5 mg/dl (0.6-1.3); ISTAT HEMOGLOBIN 7.8 g/dl (14.0-18.0); ISTAT IONIZED CALCIUM 0.53 mmol/l (1.12-1.32)
--- NOTE | 2017-09-01 13:53 | [facility] Post Operative Brief Note ---
Immediate Operative Summary Operative Date Sep 01, 2017. Pre-Operative Diagnosis Bilateral thigh and right arm compartment syndrome Post-Operative Diagnosis Bilateral thigh and right arm compartment syndrome Procedure(s) Performed Bilateral Thigh Fasciotomies, Right Forearm Fasciotomies Surgeon Dr. Jose Talent Management Specialist Surgeon(s) NONE Estimated Blood Loss 200ML Findings Both medial thighs and volar surface of right arm with mild to moderate compartment syndrome. Lateral and thigh and dorsal aspect of right arm with significant bulging of muscle after fasciotomies. Specimens None per surgeon Anesthesia Gen Complication(s) None Disposition Surgical ICU
--- NOTE | 2017-09-01 14:14 | Anesthesiology Progress Note ---
Anesthesia Post Op Note Date & Time Sep 01, 2017 at 14:06 Vital Signs Pain Intensity: 0 Vital Signs Past 12 Hours Date Time Temp Pulse Resp B/P (MAP) Pulse Ox O2 Delivery O2 Flow Rate FiO2 09/01/17 13:53 30 09/01/17 12:24 98 24 95 Mechanical Ventilator 30 09/01/17 12:10 36.6 97 127/66 (86) 09/01/17 12:00 30 09/01/17 12:00 100 101/62 09/01/17 12:00 103 24 117/63 (81) 100 09/01/17 12:00 100 Mechanical Ventilator 30 09/01/17 11:45 99 105/59 09/01/17 11:30 102 110/61 09/01/17 11:15 100 101/56 09/01/17 11:00 99 106/60 09/01/17 11:00 36.8 97 102/58 (73) 09/01/17 10:50 30 09/01/17 10:45 96 123/61 09/01/17 10:30 96 106/53 09/01/17 10:15 97 107/60 09/01/17 10:00 98 120/68 09/01/17 10:00 98 24 108/56 (73) 100 09/01/17 09:45 96 104/57 09/01/17 08:00 30 09/01/17 08:00 100 Mechanical Ventilator 30 09/01/17 08:00 97 24 108/64 (79) 100 09/01/17 07:35 21 09/01/17 06:05 94 24 131/75 (93) 100 Mechanical Ventilator 09/01/17 05:00 21 09/01/17 04:00 100 Mechanical Ventilator 21 09/01/17 04:00 21 09/01/17 03:00 95 25 119/61 (80) 100 Mechanical Ventilator 21 09/01/17 02:30 98 24 90/51 (64) 100 09/01/17 02:17 21 Notes Pt Amnestic to Procedure: Yes Nausea / Vomiting: adequately controlled Airway Patency, RR, SpO2: see Notes BP & HR: see Notes Hydration State: see Notes Anesthetic Complications: no major complications apparent The patient underwent a fasciotomy of his thighs and R forearm. He was transferred from the ICU on monitors and with an ambu bag. Prior to the OR, the patient was being dialyzed and found to have a potassium of 6. He was given 5 units IV regular insulin upon arrival to the OR. A hemostat check near the end of the procedure found his potassium to be 5.6 and glucose to be 120. He was transferred with dextrose, norepinephrine, midazolam, and ketamine gtts which were maintained through the perioperative period. The patient did require an increase of his norepinephrine to maintain his blood pressure. He received two liters of normal saline. The patient was otherwise stable during the procedure and was brought back to the ICU on monitors with an ambu bag. His vitals signs are stable in the ICU. Sign out was given to the ICU team.
--- NOTE | 2017-09-01 14:16 | OPERATIVE REPORT ---
DATE OF OPERATION: 09/01/2017 PREOPERATIVE DIAGNOSIS: Compartment syndrome, bilateral thighs and right forearm. POSTOPERATIVE DIAGNOSIS: Same. PROCEDURES: 1. Bilateral thigh fasciotomies. 2. Fasciotomies of right forearm. SURGEON: Dr. Jose. ANESTHETIC: General endotracheal. PROCEDURE INDICATIONS: The patient is a 26-year-old gentleman who was admitted with drug overdose. He underwent fasciotomies yesterday of his calves. His thigh and right arm have now become tense. CPKs have elevated up to 100,000. Fasciotomy of these areas are recommended. The family understood the risks, options and benefits and agreed to go ahead with this procedure. The patient was taken to the operating room and placed in supine position. After both thighs were prepped and draped in a sterile manner the left leg was addressed first. Medial and lateral thigh incisions were made. On the medial side, there was some mild bulging of the muscle. Muscle appeared to be on the pinkish side. It did become more pink after the fascia was totally released. On the lateral side there was extensive significant bulging of the muscle after the fasciotomies. The muscle at that point appeared nicely pink and very viable. Next, the right leg was addressed. Medial and lateral incisions were then made. The fasciotomies were done on the medial aspect, again the muscle showed some mild bulging. It did improve in color. The lateral aspect had significant bulging of the muscle since the fascia was done. The muscle was pale upon opening the fascial plane then pinked up nicely. Adequate hemostasis was obtained of the wounds. These wounds were then dressed with Xeroform, gauze, ABDs and Kerlix. Next, the right arm was prepped and draped in a sterile manner. A volar incision was made in a slow curved S fashion. The fascia was then incised. There was mild bulging of the muscle but I could not think that is was a significant compartment syndrome. The muscle did appear slightly better once it was released however. We then flipped the arm over and did the dorsal surface. This muscle was pale. It was extremely pale with bulging after the fascia was released. Bleeding was controlled, at that point the dorsal muscle appeared much better and more reddish in color. Adequate hemostasis was obtained. I did put 2 Dong straps on the volar aspect to bring the skin edges slightly together. We then covered the wound with Xeroform, ABDs and Kerlix. The patient was transported back to the intensive care unit in stable condition. I attest to the content of the Intraoperative Record and any orders documented therein. Any exception s are noted below.
--- NOTE | 2017-09-01 14:38 | Discharge Summary ---
Discharge Summary Date of Service Sep 01, 2017. Discharge Summary Admission Date: Aug 31, 2017 at 09:15 Discharge Date: Sep 01, 2017 Discharge Disposition: Acute care facility ([facility]; accepting attending Dr. Kee Payne) Principal Diagnosis: severe rhabdomyolysis 2nd to compartment syndrome Problems/Secondary Diagnoses: 1. severe acute renal failure requiring acute hemodialysis 2. severe hyperkalemia - slowly improving 3. compartment syndrome of right arm and bilateral legs 4. acute hypoxic/hypercarbic respiratory failure 5. severe lactic acidosis 6. septic shock 7. possible bacteremia with 1/2 sets of blood cultures positive for GPC 8. polysubstance abuse including IV drug abuse (heroin), THC, etc. 9. recent incarceration at [facility] 10. acute systolic CHF with EF < 30% 11. NSTEMI with peak troponin of 19 - likely type 2 NV 12. markedly elevated LFTs likely due to shock liver 13. hypocalcemia 14. coagulopathy likely 2nd to #12 15. acute blood loss anemia Procedures: 1. echocardiogram: -- Conclusions -- * 1. Normal left ventricular size with severely reduced systolic function. Global akinesis with relative sparing of the basal segments (basal segments appear mildly hypokinetic to normal). No left ventricular hypertrophy. No visualized apical thrombus. * 2. Normal right ventricular size with moderately reduced systolic function. * 3. No significant valvular abnormalities visualized (aortic valve not well seen). Cannot rule out vegetation on TTE study. * 4. No prior study available for comparison. 2. Right IJ CVC placement 3. Right femoral temporary dialysis catheter placement 4. Left femoral arterial line 5. ETT intubation with mechanical ventilation 6. CT head negative for acute findings 7. Bilateral Lower Extremity Four Compartmental Fasciotomies - Brian Jose MD 8. Bilateral Thigh Fasciotomies, Right Forearm Fasciotomies - Brian Jose MD Consultations: critical care vascular surgery nephrology Discharge Exam Physical Exam: General Appearance: + pertinent finding (intubated, sedated) ENT: + pertinent finding (ETT in place, OG tube in place) Neck: no JVD, + pertinent finding (right IJ central venous catheter in place ) Respiratory/Chest: lungs clear, no respiratory distress, no accessory muscle use Cardiovascular: no gallop, no murmur, + tachycardia, + pertinent finding ( right femoral temporary dialysis catheter in place; left femoral arterial line in place ) Abdomen / GI: normal bowel sounds, non tender, soft, + hepatomegaly Extremities: + swelling (all 4 limbs, severe) Neurologic/Psychiatric: + pertinent finding (sedated) Skin: + pertinent finding (scattered areas of erythema on chest, abdominal wall/groin; ink on hands; large dressings in place over right arm, b/l thighs, and b/l lower extremities (tib-fib region)) Hospital Course HISTORY OF PRESENT ILLNESS: 26yo male with history of polysubstance abuse and recent incarceration at the assisted in [place], [place] - apparently released in the last few weeks - who presented from his home in [place] via EMS due to being unresponsive. According to his 2 roommates who provided history to the police he arrived home sometime about 1am this morning. He went to his bedroom and he was not seen until this am when he was found unresponsive by his roommates. It is unknown how long he was unresponsive. Heroin, IV needles, and generic xanax tablets were found in his room. He was found on the floor in a slumped position with his arms on his legs in a kneeling position. In the field he was given narcan intranasally and then additional narcan IV en route without any response. Upon arrival to [facility] he was noted to be hypertonic and posturing. He was intubated following RSI protocol. Initial systolic BP was in the 50s. During my assessment he was paralyzed, intubated, and unresponsive with blood coming from his OG tube. Potassium was noted to be near 8 with wide complex tachycardia on the monitor. He received calcium gluconate 2 amps prior to my arrival along with multiple normal saline boluses. I ordered an additional amp of calcium gluconate, amp of bicarbonate, and insulin with D50. I subsequently ordered a bicarb drip STAT and protonix drip. ICU was notified of his admission. HOSPITAL COURSE: Shortly after admission to the ICU it was noted that the patient's distal legs were becoming markedly swollen and his pulses in his feet were undetectable by palpation. CPK returned at 40,000. There was considerable concern for compartment syndrome and vascular surgery was consulted emergently. About this time he was started on norepinephrine infusion for persistent shock despite copious hydration. Vascular surgery recommended emergency fasciotomies as well as perioperative hemodialysis. Nephrology was consulted for their assistance with dialysis. Temporary femoral dialysis catheter was placed, dialysis was initiated, and he was subsequently taken to the OR by Dr. Brian Jose where he performed bilateral lower compartment fasciotomies of both legs. Post-operatively he was continued on bicarbonate infusion, received multiple doses of calcium, and was continued on appropriate sedatives while on the vent. IV antibiotics were continued as his blood cultures from admission turned positive for gram positive cocci, 1/2 sets. The patient had persistent hyperkalemia despite emergent hemodialysis, bicarbonate, and other measures. On the AM of 09/01/17 the patient's CPK level was >100,000 and his thighs along with both arms appeared to be getting worse with significant swelling and poor pulses. He received hemodialysis once again on the AM of 09/01/17. There was concern for developing compartment syndrome in the above regions as well. Thus, Dr. Jose took him back to the OR on the AM of 09/01/17 and performed fasciotomies of the right arm, right thigh, and left thigh. Following the latter procedure it was recommended to the patient's family that he be transferred to a tertiary care center. We would like to thank Dr. Kee Payne and the ICU team at [facility] for accepting this critically ill patient. Other issues addressed - 1. abnormal LFTs / acute hepatitis - suspected to be from shock liver. We cannot rule out pre-existing liver disease, however. HepB surface antigen was negative; HepC antibody was pending. INR on the AM of 09/01/17 began to rise consistent with coagulopathy from his acute hepatitis. INR was 1.6. 2. severe acute systolic CHF - EF on echo (see full report above) was <30%. He also had an elevated troponin of 19. 3. septic shock - he received broad-spectrum antibiotics during his 24-hour stay and, again, 1/2 blood cultures were positive for gram positive cocci. Current Inpatient Medications Medications (Trade) Dose Ordered Sig/Ignacio Route Start Time Stop Time Status Last Admin Dose Admin Norepinephrine Bitartrate 8 mg/ Dextrose 508 ml @ 0 mls/hr Q0M PRN IV 08/31/17 12:30 09/30/17 12:29 09/01/17 03:26 101 MLS/HR Pantoprazole Sodium 40 mg/ Syringe 10 ml @ 5 mls/min DAILY@1100 IV 09/01/17 11:00 10/01/17 10:59 09/01/17 10:20 5 MLS/MIN Midazolam HCl 250 ml @ 0 mls/hr Q0M PRN IV 08/31/17 18:30 09/30/17 18:29 09/01/17 10:18 20 MLS/HR Lorazepam (Ativan Inj) 2 mg Q4H PRN IV 08/31/17 18:30 09/30/17 18:29 Fentanyl Citrate (Fentanyl Inj) 50 mcg Q1H PRN IV 09/01/17 01:30 09/15/17 01:29 09/01/17 02:00 50 MCG Vancomycin HCl (Consult) 1 ea UD PRN N/A 09/01/17 06:00 10/01/17 05:59 Fentanyl Citrate 250 ml @ 0 mls/hr Q0M PRN IV 09/01/17 08:45 09/15/17 08:44 09/01/17 10:18 20 MLS/HR Heparin Sodium (Porcine) (Heparin Sq 5000 Unit/0.5ml) 5,000 unit Q12 SC 09/01/17 09:30 10/01/17 09:29 09/01/17 10:19 5,000 UNIT Dextrose/Sodium Chloride 1,000 ml @ 150 mls/hr Q6H40M IV 09/01/17 13:00 10/01/17 12:59 09/01/17 10:21 150 MLS/HR Enteral Nutritional Formula (Novasource Renal) METHOD OF ADMINISTRATION ... QID OG 09/01/17 09:00 10/01/17 08:59 08/31/17 08:37 Red Blood Count 6.05, Mean Corpuscular Volume 93.1, Mean Corpuscular Hemoglobin 32.2, Mean Corpuscular Hemoglobin Concent 34.6, Mean Platelet Volume 11.1, Neutrophils (%) (Auto) 81.4, Lymphocytes (%) (Auto) 6.7, Monocytes (%) (Auto) 11.0, Eosinophils (%) (Auto) 0.1, Basophils (%) (Auto) 0.1, Neutrophils # (Auto ) 20.44, Lymphocytes # (Auto) 1.67, Monocytes # (Auto) 2.75, Eosinophils # (Auto ) 0.02, Basophils # (Auto) 0.02 08/31/17 18:14 Red Blood Count 5.59, Mean Corpuscular Volume 88.9, Mean Corpuscular Hemoglobin 30.8, Mean Corpuscular Hemoglobin Concent 34.6, Mean Platelet Volume 11.3, Neutrophils (%) (Auto) 83.5, Lymphocytes (%) (Auto) 9.4, Monocytes (%) (Auto) 6.6, Eosinophils (%) (Auto) 0.0, Basophils (%) (Auto) 0.1, Neutrophils # (Auto) 16.48, Lymphocytes # (Auto) 1.86, Monocytes # (Auto) 1.31, Eosinophils # (Auto) 0.00, Basophils # (Auto) 0.02 09/01/17 00:48 Red Blood Count 5.50, Mean Corpuscular Volume 88.7, Mean Corpuscular Hemoglobin 29.3, Mean Corpuscular Hemoglobin Concent 33.0, Mean Platelet Volume 11.2, Neutrophils (%) (Auto) 80.2, Lymphocytes (%) (Auto) 10.5, Monocytes (%) (Auto) 8.7, Eosinophils (%) (Auto) 0.0, Basophils (%) (Auto) 0.1, Neutrophils # (Auto) 16.24, Lymphocytes # (Auto) 2.12, Monocytes # (Auto) 1.76, Eosinophils # (Auto) 0.01, Basophils # (Auto) 0.02 09/01/17 04:34 Red Blood Count 4.96, Mean Corpuscular Volume 88.7, Mean Corpuscular Hemoglobin 31.5, Mean Corpuscular Hemoglobin Concent 35.5, Mean Platelet Volume 11.6, Neutrophils (%) (Auto) 80.5, Lymphocytes (%) (Auto) 8.8, Monocytes (%) (Auto) 10.3, Eosinophils (%) (Auto) 0.1, Basophils (%) (Auto) 0.1, Neutrophils # (Auto ) 13.55, Lymphocytes # (Auto) 1.48, Monocytes # (Auto) 1.74, Eosinophils # (Auto ) 0.01, Basophils # (Auto) 0.01 08/31/17 08:37 08/31/17 15:22 08/31/17 18:24 09/01/17 00:48 09/01/17 04:34 09/01/17 11:32 Test 08/31/17 08:37 08/31/17 08:41 08/31/17 08:55 08/31/17 09:45 White Blood Count 25.07 K/uL (4.8-10.8) Red Blood Count 6.05 M/uL (4.7-6.1) Hemoglobin 19.5 g/dL (14.0-18.0) Hematocrit 56.3 % (42-52) Mean Corpuscular Volume 93.1 fL (80-100) Mean Corpuscular Hemoglobin 32.2 pg (25-34) Mean Corpuscular Hemoglobin Concent 34.6 g/dl (32-36) Platelet Count 291 K/uL (130-400) Mean Platelet Volume 11.1 fL (7.4-10.4) Neutrophils (%) (Auto) 81.4 % Lymphocytes (%) (Auto) 6.7 % Monocytes (%) (Auto) 11.0 % Eosinophils (%) (Auto) 0.1 % Basophils (%) (Auto) 0.1 % Neutrophils # (Auto) 20.44 K/uL (1.4-6.5) Lymphocytes # (Auto) 1.67 K/uL (1.2-3.4) Monocytes # (Auto) 2.75 K/uL (0.11-0.59) Eosinophils # (Auto) 0.02 K/uL (0-0.5) Basophils # (Auto) 0.02 K/uL (0-0.2) RDW Standard Deviation 42.8 fL (36.4-46.3) RDW Coefficient of Variation 12.6 % (11.5-14.5) Immature Granulocyte % (Auto) 0.7 % Immature Granulocyte # (Auto) 0.17 K/uL (0.00-0.02) Prothrombin Time 11.8 SECONDS (9.0-12.0) Prothromb Time International Ratio 1.1 (0.9-1.1) Activated Partial Thromboplast Time 27.1 SECONDS (21.0-31.0) Partial Thromboplastin Ratio 1.0 Anion Gap 24.0 mmol/L (3-11) 24.0 mmol/L (16-25) Est Creatinine Clear Calc Drug Dose 38.0 ml/min Estimated GFR () 28.1 Estimated GFR (Non- 24.2 BUN/Creatinine Ratio 7.5 (10-20) Calcium Level 7.9 mg/dl (8.5-10.1) Total Bilirubin 1.1 mg/dl (0.2-1) Direct Bilirubin 0.6 mg/dl (0-0.2) Aspartate Amino Transf (AST/SGOT) 2289 U/L (15-37) Alanine Aminotransferase (ALT/SGPT) 957 U/L (12-78) Alkaline Phosphatase 104 U/L (45-117) Total Creatine Kinase 73176 U/L (39-308) Troponin I 1.220 ng/ml (0-0.045) Total Protein 8.1 gm/dl (6.4-8.2) Albumin 4.1 gm/dl (3.4-5.0) Salicylates Level 1.7 mg/dl (2.8-20) Acetaminophen Level < 2 ug/ml (10-30) Ethyl Alcohol mg/dL < 3.0 mg/dl (0-3) Venous Blood pH 7.06 (7.36-7.41) Venous Blood Partial Pressure CO2 75 mmHg (38.0-50.0) Venous Blood Partial Pressure O2 28 mmHg Venous Blood HCO3 21 mmol/L Venous Blood Oxygen Saturation < 60.0 % Venous Blood Base Excess -11.4 mEq/L Lactic Acid Level 12.7 mmol/L (0.4-2.0) Bedside Hemoglobin 19.4 g/dl (14.0-18.0) 17.3 g/dl (14.0-18.0) Bedside Hematocrit 57 % (42-52) 51 % (42-52) Bedside Sodium 134 mEq/L (135-144) 130 mEq/L (135-144) Bedside Potassium 7.6 mEq/L (3.3-5.0) 7.8 mEq/L (3.3-5.0) Bedside Chloride 98 mEq/L (101-112) Bedside Total CO2 21 mEq/l (24-31) Bedside Blood Urea Nitrogen 37 mg/dl (7-18) Bedside Creatinine 4.3 mg/dl (0.6-1.3) Bedside Glucose (other) 75 mg/dl (70-99) Bedside Ionized Calcium (Charles) 0.87 mmol/l (1.12-1.32) Bedside Blood Gas pH (LAB) 7.03 (7.35-7.45) Bedside Blood Gas pCO2 (LAB) 75 mmHg (35-46) Bedside Blood Gas pO2 (LAB) 321 mmHg (80-95) Bedside Blood Gas HCO3 (LAB) 20 meq/L (19-24) Bedside Blood Gas Total CO2 22 mEq/l (24-31) Bedside Blood Gas Base Excess (LAB) -11.0 meq/L (-9-1.8) Bedside Blood Gas O2 Saturation 100.0 % (90-95) Test 08/31/17 10:05 08/31/17 11:24 08/31/17 14:00 08/31/17 15:36 Urine Opiates Screen POS (NEG) POS (NEG) Urine Methadone, Qualitative NEG (NEG) NEG (NEG) Urine Barbiturates NEG (NEG) NEG (NEG) Urine Phencyclidine (PCP) Level NEG (NEG) NEG (NEG) Ur Amphetamine/Methamphetamine NEG (NEG) NEG (NEG) MDMA (Ecstasy) Screen NEG (NEG) NEG (NEG) Urine Benzodiazepines Screen NEG (NEG) NEG (NEG) Urine Cocaine Metabolite NEG (NEG) NEG (NEG) Urine Marijuana (THC) POS (NEG) POS (NEG) Bedside Hemoglobin 17.0 g/dl (14.0-18.0) Bedside Hematocrit 50 % (42-52) Bedside Blood Gas pH (LAB) 7.38 (7.35-7.45) Bedside Blood Gas pCO2 (LAB) 47 mmHg (35-46) Bedside Blood Gas pO2 (LAB) 84 mmHg (80-95) Bedside Blood Gas HCO3 (LAB) 27 meq/L (19-24) Bedside Blood Gas Total CO2 29 mEq/l (24-31) Bedside Blood Gas Base Excess (LAB) 2.0 meq/L (-9-1.8) Bedside Blood Gas O2 Saturation 96.0 % (90-95) Bedside Sodium 137 mEq/L (135-144) Bedside Potassium 6.3 mEq/L (3.3-5.0) Urine Color BROWN Urine Appearance CLOUDY (CLEAR) Urine pH (4.5-7.5) Urine Specific [place] 1.019 (1.000-1.030) Urine Protein (NEG) Urine Glucose (UA) (NEG) Urine Ketones (NEG) Urine Occult Blood (NEG) Urine Nitrite (NEG) Urine Bilirubin (NEG) Urine Urobilinogen (NEG) Urine Leukocyte Esterase (NEG) Urine RBC 0-4 /hpf (0-4) Urine WBC 5-10 /hpf (0-5) Urine Epithelial Cells 0-5 /lpf (0-5) Urine Amorphous Sediment PRESENT (NONE PRSENT) Urine Bacteria NEG (NEG) Urine Hyaline Casts 1-5 /lpf (0-5) Urine Granular Casts 0-3 /lpf (0) Bedside Glucose (other) 155 mg/dl (70-99) Test 08/31/17 18:14 08/31/17 18:23 08/31/17 18:24 08/31/17 23:59 White Blood Count 19.75 K/uL (4.8-10.8) Red Blood Count 5.59 M/uL (4.7-6.1) Hemoglobin 17.2 g/dL (14.0-18.0) Hematocrit 49.7 % (42-52) Mean Corpuscular Volume 88.9 fL (80-100) Mean Corpuscular Hemoglobin 30.8 pg (25-34) Mean Corpuscular Hemoglobin Concent 34.6 g/dl (32-36) Platelet Count 197 K/uL (130-400) Mean Platelet Volume 11.3 fL (7.4-10.4) Neutrophils (%) (Auto) 83.5 % Lymphocytes (%) (Auto) 9.4 % Monocytes (%) (Auto) 6.6 % Eosinophils (%) (Auto) 0.0 % Basophils (%) (Auto) 0.1 % Neutrophils # (Auto) 16.48 K/uL (1.4-6.5) Lymphocytes # (Auto) 1.86 K/uL (1.2-3.4) Monocytes # (Auto) 1.31 K/uL (0.11-0.59) Eosinophils # (Auto) 0.00 K/uL (0-0.5) Basophils # (Auto) 0.02 K/uL (0-0.2) RDW Standard Deviation 41.4 fL (36.4-46.3) RDW Coefficient of Variation 12.7 % (11.5-14.5) Immature Granulocyte % (Auto) 0.4 % Immature Granulocyte # (Auto) 0.08 K/uL (0.00-0.02) Blood Gas Sample Site Art Line Bedside Blood Gas pH (LAB) 7.26 (7.35-7.45) Bedside Blood Gas pCO2 (LAB) 48 mmHg (35-46) Bedside Blood Gas pO2 (LAB) 101 mmHg (80-95) Bedside Blood Gas HCO3 (LAB) 21 meq/L (19-24) Bedside Blood Gas Total CO2 23 mEq/l (24-31) Bedside Blood Gas Base Excess (LAB) -6.0 meq/L (-9-1.8) Bedside Blood Gas O2 Saturation 97.0 % (90-95) Iban Test NA Anion Gap 11.0 mmol/L (3-11) Est Creatinine Clear Calc Drug Dose 73.8 ml/min Estimated GFR () 62.7 Estimated GFR (Non- 54.1 BUN/Creatinine Ratio 11.1 (10-20) Lactic Acid Level 3.1 mmol/L (0.4-2.0) Calcium Level 5.3 mg/dl (8.5-10.1) Phosphorus Level 6.6 mg/dl (2.5-4.9) Total Bilirubin 0.9 mg/dl (0.2-1) Aspartate Amino Transf (AST/SGOT) 6384 U/L (15-37) Alanine Aminotransferase (ALT/SGPT) 1507 U/L (12-78) Alkaline Phosphatase 59 U/L (45-117) Troponin I 19.500 ng/ml (0-0.045) Total Protein 4.5 gm/dl (6.4-8.2) Albumin 2.2 gm/dl (3.4-5.0) Globulin 2.3 gm/dl (2.5-4.0) Albumin/Globulin Ratio 1.0 (0.9-2) Hepatitis B Surface Antigen NEG (NEG) Hepatitis B Surface Antibody POS Bedside Glucose 122 mg/dl (70-99) Test 09/01/17 00:48 09/01/17 04:20 09/01/17 04:34 09/01/17 05:32 White Blood Count 20.25 K/uL (4.8-10.8) 16.83 K/uL (4.8-10.8) Red Blood Count 5.50 M/uL (4.7-6.1) 4.96 M/uL (4.7-6.1) Hemoglobin 16.1 g/dL (14.0-18.0) 15.6 g/dL (14.0-18.0) Hematocrit 48.8 % (42-52) 44.0 % (42-52) Mean Corpuscular Volume 88.7 fL (80-100) 88.7 fL (80-100) Mean Corpuscular Hemoglobin 29.3 pg (25-34) 31.5 pg (25-34) Mean Corpuscular Hemoglobin Concent 33.0 g/dl (32-36) 35.5 g/dl (32-36) Platelet Count 168 K/uL (130-400) 117 K/uL (130-400) Mean Platelet Volume 11.2 fL (7.4-10.4) 11.6 fL (7.4-10.4) Neutrophils (%) (Auto) 80.2 % 80.5 % Lymphocytes (%) (Auto) 10.5 % 8.8 % Monocytes (%) (Auto) 8.7 % 10.3 % Eosinophils (%) (Auto) 0.0 % 0.1 % Basophils (%) (Auto) 0.1 % 0.1 % Neutrophils # (Auto) 16.24 K/uL (1.4-6.5) 13.55 K/uL (1.4-6.5) Lymphocytes # (Auto) 2.12 K/uL (1.2-3.4) 1.48 K/uL (1.2-3.4) Monocytes # (Auto) 1.76 K/uL (0.11-0.59) 1.74 K/uL (0.11-0.59) Eosinophils # (Auto) 0.01 K/uL (0-0.5) 0.01 K/uL (0-0.5) Basophils # (Auto) 0.02 K/uL (0-0.2) 0.01 K/uL (0-0.2) RDW Standard Deviation 41.3 fL (36.4-46.3) 40.9 fL (36.4-46.3) RDW Coefficient of Variation 12.7 % (11.5-14.5) 12.7 % (11.5-14.5) Immature Granulocyte % (Auto) 0.5 % 0.2 % Immature Granulocyte # (Auto) 0.10 K/uL (0.00-0.02) 0.04 K/uL (0.00-0.02) Anion Gap 9.0 mmol/L (3-11) 9.0 mmol/L (3-11) Est Creatinine Clear Calc Drug Dose 57.9 ml/min 51.2 ml/min Estimated GFR () 43.5 37.5 Estimated GFR (Non- 37.5 32.3 BUN/Creatinine Ratio 10.5 (10-20) 9.9 (10-20) Calcium Level < 5.0 mg/dl (8.5-10.1) < 5.0 mg/dl (8.5-10.1) Magnesium Level 2.3 mg/dl (1.8-2.4) 2.3 mg/dl (1.8-2.4) Total Bilirubin 0.7 mg/dl (0.2-1) 0.7 mg/dl (0.2-1) Direct Bilirubin 0.3 mg/dl (0-0.2) 0.3 mg/dl (0-0.2) Aspartate Amino Transf (AST/SGOT) 7086 U/L (15-37) 7308 U/L (15-37) Alanine Aminotransferase (ALT/SGPT) 1727 U/L (12-78) 1802 U/L (12-78) Alkaline Phosphatase 50 U/L (45-117) 51 U/L (45-117) Total Protein 3.6 gm/dl (6.4-8.2) 3.5 gm/dl (6.4-8.2) Albumin 1.7 gm/dl (3.4-5.0) 1.5 gm/dl (3.4-5.0) Bedside Glucose 109 mg/dl (70-99) Prothrombin Time 18.0 SECONDS (9.0-12.0) Prothromb Time International Ratio 1.6 (0.9-1.1) Activated Partial Thromboplast Time 42.9 SECONDS (21.0-31.0) Partial Thromboplastin Ratio 1.7 Phosphorus Level 6.8 mg/dl (2.5-4.9) Total Creatine Kinase > 752705 U/L (39-308) Blood Gas Sample Site Art Line Bedside Blood Gas pH (LAB) 7.33 (7.35-7.45) Bedside Blood Gas pCO2 (LAB) 41 mmHg (35-46) Bedside Blood Gas pO2 (LAB) 97 mmHg (80-95) Bedside Blood Gas HCO3 (LAB) 21 meq/L (19-24) Bedside Blood Gas Total CO2 22 mEq/l (24-31) Bedside Blood Gas Base Excess (LAB) -4.0 meq/L (-9-1.8) Bedside Blood Gas O2 Saturation 96.0 % (90-95) Iban Test NA Oxygen Delivery Device Ventilator Bedside Oxygen Rate (breaths/min) 24 Blood Gas Minute Ventilation 12.6 Bedside FiO2 21 % Blood Gas Tidal Volume 550 Blood Gas PEEP 5 Test 09/01/17 07:58 09/01/17 08:10 09/01/17 08:33 09/01/17 11:32 Blood Gas Sample Site Art Line Bedside Blood Gas pH (LAB) 7.39 (7.35-7.45) Bedside Blood Gas pCO2 (LAB) 36 mmHg (35-46) Bedside Blood Gas pO2 (LAB) 90 mmHg (80-95) Bedside Blood Gas HCO3 (LAB) 22 meq/L (19-24) Bedside Blood Gas Total CO2 23 mEq/l (24-31) Bedside Blood Gas Base Excess (LAB) -3.0 meq/L (-9-1.8) Bedside Blood Gas O2 Saturation 97.0 % (90-95) Iban Test NA Oxygen Delivery Device Ventilator Bedside Oxygen Rate (breaths/min) 24 Blood Gas Minute Ventilation 12.8 Bedside FiO2 21 % Blood Gas Tidal Volume 550 Blood Gas PEEP 5 Ionized Calcium 0.65 mmol/l (1.12-1.32) Uric Acid 8.6 mg/dl (2.6-7.2) Calcium Level 5.4 mg/dl (8.5-10.1) Test 09/01/17 11:49 09/01/17 13:18 09/01/17 13:24 Bedside Glucose 108 mg/dl (70-99) Bedside Hemoglobin 7.8 g/dl (14.0-18.0) 11.6 g/dl (14.0-18.0) Bedside Hematocrit 23 % (42-52) 34 % (42-52) Bedside Sodium 144 mEq/L (135-144) 134 mEq/L (135-144) Bedside Potassium 3.3 mEq/L (3.3-5.0) 5.6 mEq/L (3.3-5.0) Bedside Chloride 113 mEq/L (101-112) 103 mEq/L (101-112) Bedside Total CO2 14 mEq/l (24-31) 22 mEq/l (24-31) Anion Gap 21.0 mmol/L (16-25) 16.0 mmol/L (16-25) Bedside Blood Urea Nitrogen 12 mg/dl (7-18) 20 mg/dl (7-18) Bedside Creatinine 1.5 mg/dl (0.6-1.3) 2.8 mg/dl (0.6-1.3) Bedside Glucose (other) 81 mg/dl (70-99) 120 mg/dl (70-99) Bedside Ionized Calcium (Charles) 0.53 mmol/l (1.12-1.32) 0.75 mmol/l (1.12-1.32) Date/Time Source Procedure Growth Status 08/31/17 13:20 Nasal MRSA DNA Surveillance Screen - Final Specimen Negative for MRSA by DNA Probe Complete Date/Time Source Procedure Growth Status 08/31/17 08:59 Blood Blood Culture Pending Received 08/31/17 08:37 Blood Blood Culture - Preliminary Gram Positive Cocci Resulted 08/31/17 13:20 Nasal MRSA DNA Surveillance Screen - Final Specimen Negative for MRSA by DNA Probe Complete Total Time Spent: Greater than 30 minutes This includes examination of the patient, discharge planning, medication reconciliation, and communication with other providers. Discharge Instructions Please refer to the electronic Patient Visit Report (Discharge Instructions) for additional information. Follow-Up to be determined Additional Copies To Davis Cid M.D.; Linas. Palacio MD; Brian Jose M.D.
[2017-09-01] MEDS ORDERED: INSULIN HUMAN REGULAR IV STA (15:52)
[2017-09-01] MEDS ORDERED: DEXTROSE 50% 50 ML SYR ONE (15:54)
[2017-09-01] MEDS ORDERED: INSULIN HUMAN REGULAR PER UNIT 7 UNITS in SYRINGE 6.93 ML IV SCH (16:15)
[2017-09-03 08:15] LABS: HYDROCOD UR NEGATIVE NG/ML (CUTOFF=50); HYDROMOR UR NEGATIVE NG/ML (CUTOFF=50); MORPHINE UR 10800 NG/ML (CUTOFF=50); NORHYDROCODONE CONF UR NEGATIVE NG/ML (CUTOFF=50); OXYMORPH UR 603 NG/ML (CUTOFF=50)
== END 2017-09-01 16:15 | disposition short-term general hospital (02) | DRG 981 ==
LOC: EDBD 08:32 → C.EDB 08:33 → C.MSICU 09:15 → ENRESERV 09:44
PROVIDERS: ADMIT Internal Medicine; ATTEND Internal Medicine
PROC: 0T9B70Z Drainage of Bladder with Drainage Device, Via Natural or Artificial Opening (ICD-10-PCS; 2017-08-31)
PROC: 0BH17EZ Insertion of Endotracheal Airway into Trachea, Via Natural or Artificial Opening (ICD-10-PCS; 2017-08-31)
PROC: 5A1945Z Respiratory Ventilation, 24-96 Consecutive Hours (ICD-10-PCS; 2017-08-31)
PROC: 04HL33Z Insertion of Infusion Device into Left Femoral Artery, Percutaneous Approach (ICD-10-PCS; 2017-08-31)
PROC: 06HM33Z Insertion of Infusion Device into Right Femoral Vein, Percutaneous Approach (ICD-10-PCS; 2017-08-31)
PROC: 05HM33Z Insertion of Infusion Device into Right Internal Jugular Vein, Percutaneous Approach (ICD-10-PCS; 2017-08-31)
PROC: 0JN Subcutaneous Tissue and Fascia, Release (ICD-10-PCS; principal; 2017-08-31 08:00)
PROC: 0JNN0ZZ Release Right Lower Leg Subcutaneous Tissue and Fascia, Open Approach (ICD-10-PCS; principal; 2017-08-31 08:00)
PROC: 0JNG0ZZ Release Right Lower Arm Subcutaneous Tissue and Fascia, Open Approach (ICD-10-PCS; 2017-09-01)
PROC: 0JNM0ZZ Release Left Upper Leg Subcutaneous Tissue and Fascia, Open Approach (ICD-10-PCS; 2017-09-01)
PROC: 0JNL0ZZ Release Right Upper Leg Subcutaneous Tissue and Fascia, Open Approach (ICD-10-PCS; 2017-09-01)
DX: T40.1X1A Poisoning by heroin, accidental (unintentional), initial encounter (principal); A41.9 Sepsis, unspecified organism; R65.21 Severe sepsis with septic shock; J96.01 Acute respiratory failure with hypoxia; J96.02 Acute respiratory failure with hypercapnia; K72.00 Acute and subacute hepatic failure without coma; I21.A1 Myocardial infarction type 2; I50.21 Acute systolic (congestive) heart failure; N17.9 Acute kidney failure, unspecified; M62.82 Rhabdomyolysis; K92.2 Gastrointestinal hemorrhage, unspecified; E87.2 Acidosis; M79.A21 Nontraumatic compartment syndrome of right lower extremity; M79.A22 Nontraumatic compartment syndrome of left lower extremity; M79.A11 Nontraumatic compartment syndrome of right upper extremity; D62 Acute posthemorrhagic anemia; T42.4X1A Poisoning by benzodiazepines, accidental (unintentional), initial encounter; F12.10 Cannabis abuse, uncomplicated; E87.5 Hyperkalemia; E83.51 Hypocalcemia; I95.9 Hypotension, unspecified; R73.09 Other abnormal glucose; R31.0 Gross hematuria